=== PATIENT | female | born 1955 | race Caucasian/White ===

== ENCOUNTER 2021-04-02 16:18 | Observation (INO) | payer MEDICARE, SELFPAY ==
[2021-04-02] VITALS (8 sets, daily range): BP systolic 135–196; BP diastolic 50–67; PULSE 63–85; RESP 14–16; TEMP 36.3–36.6; O2SAT 95–100; BMI 40.8; BMI 41.3; BMI 40.1
--- NOTE | 2021-04-02 16:26 | EKG12_ITS ---
Test Reason : NEURO Blood Pressure : / mmHG Vent. Rate : 066 BPM Atrial Rate : 066 BPM P-R Int : 178 ms QRS Dur : 082 ms QT Int : 386 ms P-R-T Axes : 040 046 151 degrees QTc Int : 404 ms Normal sinus rhythm Anteroseptal infarct , age undetermined ST & T wave abnormality, consider inferolateral ischemia Abnormal ECG Confirmed by RCIO BLACKWOOD, JAUN ([id number]), editor map EWA NGUYEN ([id number]) on 04/06/2021 10:26:47 AM Referred By: JENNY Confirmed By:JAUN GÓMEZ MD
--- NOTE | 2021-04-02 16:26 | CT_ITS ---
STUDY: CT BRAIN WITHOUT CONTRAST REASON FOR EXAM: Female, 66 years old. diploplia RADIATION DOSAGE (If Supplied By Facility): CTDIvol = ( 44.99 ) mGy, DLP = ( 829.85 ) mGycm TECHNIQUE: Transaxial CT imaging of the brain was performed without administration of intravenous contrast material. Individualized dose optimization techniques were used for this CT. COMPARISON: No relevant priors. FINDINGS: Normal soft tissue structures. Normal calvarium. Normal size ventricles and extra-axial spaces for the patient''s age. Normal white matter tracts of the cerebral hemispheres. Normal basal ganglia and thalami. Normal brainstem. Normal cerebellum. There is no intracranial hemorrhage. There are no findings of an acute ischemic infarction. Normal visualized paranasal sinuses. CT/Brain/Head without Contrast IMPRESSION: Normal unenhanced CT scan of the brain. Electronically Signed: Igor Figueroa MD at 17:03 EST Tel , Service support ,
--- NOTE | 2021-04-02 16:34 | NURSING ---
NO OLD EKGS
--- NOTE | 2021-04-02 16:49 | RAD_ITS ---
STUDY: X-RAY CHEST REASON FOR EXAM: Female, 66 years old. stroke TECHNIQUE: Single AP portable view of the chest. COMPARISON: None. FINDINGS: The lungs are clear and expanded. There is no demonstrated pleural abnormality. Normal size heart. Normal mediastinum and desire. Normal visualized pulmonary arteries. Normal visualized aortic arch and descending thoracic aorta. Normal visualized thoracic spine. Normal visualized ribs, clavicles, and shoulders. There is no demonstrated abnormality of the visualized soft tissue structures of the upper abdomen. RAD/Chest 1 View (Portable) IMPRESSION: Normal x-ray examination of the chest. Electronically Signed: Igor Figueroa MD at 17:06 EST Tel , Service support ,
[2021-04-02 16:55] LABS: Absolute Lymphocyte Count 2.99 X10^3/uL (0.83-4.51); Absolute Neutrophil Count 10.8 X10^3/uL (2.0-7.7); Basophil# 0.07 X10^3/uL; Basophil% 0.4 % (0-1); Eosinophil# 0.56 X10^3/uL; Eosinophils% 3.6 % (0-5); Hematocrit 41.1 % (37-47); Hemoglobin 13.7 g/dL (12.0-15.0); Lymphocyte # 2.99 X10^3/ul (0.83-4.51); Lymphocyte % 19.1 % (19-41); Mean Corp Hgb Conc 33.3 g/dL (32-36); Mean Corpuscular Hgb 28.8 pg (27.0-32.0); Mean Corpuscular Volume 86.5 fL (81-99); Monocyte# 1.15 X10^3/uL; Monocyte% 7.3 % (0-10); NRBC Flagged by Analyzer 0 % (0-5); Neutrophil # 10.78 X10^3/uL (2.7-7.7); Platelet Count 390 K/mm3 (150-450); RBC Distribution Width CV 13.8 % (11.6-14.6); RBC Distribution Width SD 44.4 fl (35.1-43.9); Red Blood Count 4.75 M/mm3 (4.2-5.4); White Blood Count 15.7 K/mm3 (4.4-11.0)
[2021-04-02 17:10] LABS: International Normalized Ratio 1.1; Prothrombin Time (Protime)PT. 13.6 SECONDS (11.7-14.9)
[2021-04-02 17:41] LABS: ALB/GLOB Ratio 0.7 RATIO (0.9-2.4); AST(SGOT) 14 U/L (15-37); Alanine Aminotransfer ALT/SGPT 26 U/L (13-56); Albumin, Serum 2.9 g/dL (3.2-5.0); Alkaline Phosphatase 93 U/L (45-117); Anion Gap 11 (5-15); BUN 33 mg/dL (7-18); BUN/Creat Ratio 24.1 RATIO (10-20); Calcium,Total 8.4 mg/dL (8.5-10.1); Chloride 98 mmol/L (98-107); Creatinine, Serum 1.37 mg/dL (0.55-1.02); EST Glomerular Filtration Rate 41 mL/min (>60); Est Glom Filt Rate - Afr Amer 49 mL/min (>60); Estimated Creatinine Clearance 31.52 ml/min; Globulin 4.1 g/dL (2.2-4.2); Glucose 272 mg/dL (74-106); Potassium 3.2 mmol/L (3.5-5.1); Sodium Level 137 mmol/L (136-145); Troponin-I HS 45 pg/mL (3.0-54.0)
[2021-04-02 17:45] LABS: Bacteria 0 SEEN /hpf (None Seen); Mucous, Urine 0 SEEN /hpf (<or=2+); Red Blood Cells-Urine 0 SEEN /hpf (0-5)
[2021-04-02 17:59] LABS: Color, Urine Yellow (Yellow); Glucose, Dipstick Normal (Normal); Ketone-Dipstick Negative (Negative); Leukocyte Esterase-Dipstick 25 /ul (Negative); Nitrite-Dipstick Negative (Negative); Occult Blood-Urine Negative /ul (Negative); Protein-Dipstick Negative (Negative); Urine Bilirubin Dipstick Negative (Negative); Urine Clarity Clear (Clear); Urine Urobilinogen Normal (Normal)
[2021-04-02 18:18] LABS: Hyaline Cast 0-5 SEEN /lpf (0-5); Squamous Epithelial Cells - UA 0-5 SEEN /hpf (5-10); White Blood Cells 0-5 SEEN /hpf (0-5)
--- NOTE | 2021-04-02 18:41 | EDS_ITS ---
HPI History of Present Illness Chief Complaint: Neuro S/Sx Narrative Narrative: 66-year-old female with history of diabetes, hypertension, Sjogren's presenting with concern for stroke. She started having symptoms of diplopia on Tuesday. She was seen by her travel freight and passenger agent who did evaluate her and had concern for stroke given her acute horizontal diplopia and her partial medial rectus palsy. She states she has no history of stroke. She does not have any paresthesias. She is able to move all 4 extremities. She states that when she does ambulate she has to cover 1 eye otherwise she has difficulty due to the diplopia. Patient denies any head injury. [facility] Medical History Depression Diabetes HTN (hypertension) Hypercholesteremia Leukocytosis PTSD (post-traumatic stress disorder) Rheumatoid arthritis Sleep apnea with use of nocturnal bilevel positive airway pressure (BPAP) Home Medications aspirin [Baby Aspirin] 81 mg PO DAILY 04/02/21 [History Last Taken Unknown] atorvastatin 40 mg PO DAILY 04/02/21 [History Last Taken Unknown] clonidine HCl 0.2 mg PO BID 04/02/21 [History Last Taken Unknown] diltiazem HCl 180 mg PO BID 04/02/21 [History Last Taken Unknown] escitalopram oxalate 20 mg PO DAILY 04/02/21 [History Last Taken Unknown] glipizide 5 mg PO DAILY 04/02/21 [History Last Taken Unknown] hydralazine 50 mg PO BID 04/02/21 [History Last Taken Unknown] hydroxychloroquine 200 mg PO BID 04/02/21 [History Last Taken Unknown] lisinopril 40 mg PO DAILY 04/02/21 [History Last Taken Unknown] topiramate 300 mg PO DAILY 04/02/21 [History Last Taken Unknown] Allergy/AdvReac Type Severity Reaction Status Date / Time No Known Allergies Allergy Verified 04/02/21 16:20 Social History Smoking Status: Never smoker ROS ROS ED Constitutional Constitutional ED: Denies chills, fever(s) or sweats Eyes Eyes: Reports diplopia ENT ENT ED: Denies rhinorrhea or sore throat Cardiovascular Cardiovascular: Denies chest pain or palpitations Respiratory/Chest Respiratory/Chest: Denies cough or dyspnea Gastrointestinal Gastrointestinal: Denies abdominal pain, diarrhea, nausea or vomiting Genitourinary Genitourinary ED: Denies dysuria or hematuria Musculoskeletal Musculoskeletal: Denies arthralgias or myalgias Integumentary Denies abscess or rash Neurologic Neurologic: Denies headache(s), paresthesias or weakness EXAM Physical Exam Const Vital Signs: 04/02/21 16:20 04/02/21 17:39 04/02/21 18:33 Temperature 97.4 F L Temperature Source Temporal Pulse Rate 80 69 84 Respiratory Rate 14 15 14 Blood Pressure 196/67 H 143/50 H 135/51 H Blood Pressure Mean 110 81 79 Pulse Ox 98 100 95 Oxygen Delivery Method Room Air Room Air Room Air Positive well nourished General Appearance ED: NAD ROLAND Reports moist mucous membranes atraumatic Eyes PERRL Eyes Narrative: Patient does have a slight right medial rectus palsy when she is relaxed. She does appear to be able to overcome this at times. She has double vision when using both eyes and can cover up each eye individually and the other I will not have double vision in it. Neck no lymphadenopathy and supple Cardio Rate: regular rate Rhythm: regular rhythm GI normal to inspection, nondistended, normoactive bowel sounds Extremity normal to inspection General Extremety ED: Yes tenderness Neuro oriented x3 and no sensory deficits noted Neuro Narrative: NIH stroke scale score 1 for gaze palsy Sensorium / Orientation: alert Motor Exam: strength abnormal Psych mental status grossly normal Skin Lesions: no lesions Rashes: no rashes STROKE Vital Signs/Narrative: Vital Signs Temp Pulse Resp BP Pulse Ox 04/02/21 18:33 84 14 135/51 H 95 04/02/21 17:39 69 15 143/50 H 100 04/02/21 16:20 97.4 F L 80 14 196/67 H 98 MDM MDM MDM Narrative Medical decision making narrative: Patient is outside the window for tPA. She has a partial right medial rectus palsy which she can overcome at times. She also has double vision in each eye which appears to be horizontal. When she covers 1 eye the other eye sees normally and this occurs on both sides. She has no other neurologic findings. CT brain is negative for acute process. CBC shows a leukocytosis of 15.7 and the patient states he is always had a leukocytosis. Chest x-ray on my interpretation shows no acute cardiopulmonary process and the radiologist was reviewed. Creatinine is elevated 1.37 however have no comparison. Potassium is slightly low at 3.2. Urinalysis is negative for infection. Patient is new to the area and does not have primary care follow-up. Given the possibility of stroke I think she needs to be admitted for an MRI. She was given aspirin 324 mg to chew. She was discussed with the hospitalist for admission. Impression: 1. Horizontal diplopia 2. Right medial rectus palsy Lab Data Attestation: I reviewed the patient's lab results. Labs: Laboratory Results - last 24 hr 04/02/21 04/02/21 04/02/21 16:40 16:40 16:40 WBC 15.7 H RBC 4.75 Hgb 13.7 Hct 41.1 MCV 86.5 MCH 28.8 MCHC 33.3 RDW Std Deviation 44.4 H RDW Coeff of Comfort 13.8 Plt Count 390 MPV 11.0 Immature Gran % (Auto) 0.600 Neut % (Auto) 69.0 Lymph % (Auto) 19.1 [place] % (Auto) 7.3 Eos % (Auto) 3.6 Baso % (Auto) 0.4 Absolute Neuts (auto) 10.8 H Absolute Lymphs (auto) 2.99 Nucleated RBC % 0 PT 13.6 INR 1.1 Sodium 137 Potassium 3.2 L Chloride 98 Carbon Dioxide 28.0 Anion Gap 11 BUN 33 H Creatinine 1.37 H Estim Creat Clear Calc 31.52 Est GFR (MDRD) Af Amer 49 L Est GFR (MDRD) Non-Af 41 L BUN/Creatinine Ratio 24.1 H Glucose 272 H Calcium 8.4 L Total Bilirubin 0.30 AST 14 L ALT 26 Alkaline Phosphatase 93 Troponin I High Sens 45 Total Protein 7.0 Albumin 2.9 L Globulin 4.1 Albumin/Globulin Ratio 0.7 L Urine Color Urine Clarity Urine pH Ur Specific [place] Urine Protein Urine Glucose (UA) Urine Ketones Urine Occult Blood Urine Nitrite Urine Bilirubin Urine Urobilinogen Ur Leukocyte Esterase Urine RBC Urine WBC Ur Squamous Epith Cells Urine Bacteria Hyaline Casts Urine Mucus 04/02/21 17:35 WBC RBC Hgb Hct MCV MCH MCHC RDW Std Deviation RDW Coeff of Comfort Plt Count MPV Immature Gran % (Auto) Neut % (Auto) Lymph % (Auto) [place] % (Auto) Eos % (Auto) Baso % (Auto) Absolute Neuts (auto) Absolute Lymphs (auto) Nucleated RBC % PT INR Sodium Potassium Chloride Carbon Dioxide Anion Gap BUN Creatinine Estim Creat Clear Calc Est GFR (MDRD) Af Amer Est GFR (MDRD) Non-Af BUN/Creatinine Ratio Glucose Calcium Total Bilirubin AST ALT Alkaline Phosphatase Troponin I High Sens Total Protein Albumin Globulin Albumin/Globulin Ratio Urine Color Yellow Urine Clarity Clear Urine pH 5.0 Ur Specific [place] 1.020 Urine Protein Negative Urine Glucose (UA) Normal Urine Ketones Negative Urine Occult Blood Negative Urine Nitrite Negative Urine Bilirubin Negative Urine Urobilinogen Normal Ur Leukocyte Esterase 25 H Urine RBC 0 SEEN Urine WBC 0-5 SEEN Ur Squamous Epith Cells 0-5 SEEN Urine Bacteria 0 SEEN Hyaline Casts 0-5 SEEN Urine Mucus 0 SEEN Radiography Diagnostic Testing: Clinical Impression(s) from Imaging Studies Brain CT 04/02/21 16:26 IMPRESSION: Normal unenhanced CT scan of the brain. Electronically Signed: Igor Figueroa MD at 17:03 EST Tel , Service support , Chest X-Ray 04/02/21 16:49 IMPRESSION: Normal x-ray examination of the chest. Electronically Signed: Igor Figueroa MD at 17:06 EST Tel , Service support , Discharge Plan Triage Chief Complaint: Neuro S/Sx ED Provider: Dakota Parks Dx/Rx/DC Orders Prescriptions: No Action atorvastatin 40 mg tablet 40 mg PO DAILY RF: 0 diltiazem HCl 180 mg capsule,extended release 24hr 180 mg PO BID RF: 0 clonidine HCl 0.2 mg tablet 0.2 mg PO BID RF: 0 aspirin [Baby Aspirin] 81 mg Tablet,Chewable 81 mg PO DAILY RF: 0 hydralazine 50 mg tablet 50 mg PO BID RF: 0 hydroxychloroquine 200 mg tablet 200 mg PO BID RF: 0 lisinopril 40 mg tablet 40 mg PO DAILY RF: 0 topiramate 100 mg tablet 300 mg PO DAILY RF: 0 glipizide 5 mg tablet 5 mg PO DAILY RF: 0 escitalopram oxalate 20 mg tablet 20 mg PO DAILY RF: 0 Primary Care Provider: Care Physician,No Primary
--- NOTE | 2021-04-02 18:58 | PCM.HP.STD ---
HPI - General HPI Narrative TIMOTHY RODRIGUEZ, is a 66 F who presents with a 2-day history of diplopia. Began suddenly. Has not gotten any better. Saw her media center specialist to with patient had a nerve palsy and sent her to the emergency room. Patient underwent a work-up that was unremarkable. Stroke team was not called as the onset was 2 days ago. Patient is never had this issue before. Patient's also notes that patient has drooping of her right eyelid. Patient has never had a stroke before. [facility] Medical History (Updated 04/02/21 @ 19:[address] Khang Garces DO) Depression Diabetes HTN (hypertension) Hypercholesteremia Leukocytosis PTSD (post-traumatic stress disorder) Rheumatoid arthritis Sleep apnea with use of nocturnal bilevel positive airway pressure (BPAP) Home Medications aspirin [Baby Aspirin] 81 mg PO DAILY 04/02/21 [History Last Taken Unknown] atorvastatin 40 mg PO DAILY 04/02/21 [History Last Taken Unknown] clonidine HCl 0.2 mg PO BID 04/02/21 [History Last Taken Unknown] diltiazem HCl 180 mg PO BID 04/02/21 [History Last Taken Unknown] escitalopram oxalate 20 mg PO DAILY 04/02/21 [History Last Taken Unknown] glipizide 5 mg PO DAILY 04/02/21 [History Last Taken Unknown] hydralazine 50 mg PO BID 04/02/21 [History Last Taken Unknown] hydroxychloroquine 200 mg PO BID 04/02/21 [History Last Taken Unknown] lisinopril 40 mg PO DAILY 04/02/21 [History Last Taken Unknown] topiramate 300 mg PO DAILY 04/02/21 [History Last Taken Unknown] Allergy/AdvReac Type Severity Reaction Status Date / Time No Known Allergies Allergy Verified 04/02/21 16:20 Social History (Updated 04/02/21 @ 19:[address] Khang Garces DO) Smoking Status: Never smoker alcohol intake: never substance use type: does not use ROS ROS Narrative Denies any paresthesias nor any unilateral weakness. All review of systems were negative except as mentioned above in the history of present illness and the other review of systems. Vital Signs Vital Signs Vital Signs: 04/02/21 16:20 04/02/21 17:39 04/02/21 18:33 Temperature 36.3 C L Temperature Source Temporal Pulse Rate 80 69 84 Respiratory Rate 14 15 14 Blood Pressure 196/67 H 143/50 H 135/51 H Blood Pressure Mean 110 81 79 Pulse Ox 98 100 95 Oxygen Delivery Method Room Air Room Air Room Air Weight Weight: 102.6 kg Body Mass Index (BMI) 41.3 Physical Exam Const alert General Appearance: cooperative HEENT normocephalic and head/scalp atraumatic HEENT Narrative: Patient unable to adduct her right eye. Patient experiencing diplopia on visual gaze in all grimm. right ptosis Neck no lymphadenopathy Neck Narrative: No thyromegaly Resp normal respiratory effort, no retractions, no use of accessory muscles and clear to auscultation bilaterally Cardio regular rate and regular rhythm Cardio Narrative: 2 out of 6 systolic ejection murmur GI normal to inspection, nondistended, normoactive bowel sounds, soft to palpation, non-tender and non-distended Extremity normal to inspection and full ROM Skin Skin Narrative: Chronic skin changes to lower extremities are without any erythema. Neuro moves all extremities and no focal motor deficits Sensorium / Orientation: awake and alert Speech: speech normal Psych affect normal Results Lab / Micro Data Attestation: I reviewed the patient's lab results. Result Diagrams: 04/02/21 16:40 04/02/21 16:40 Labs: Laboratory Results - last 24 hr 04/02/21 16:40: WBC 15.7 H, RBC 4.75, Hgb 13.7, Hct 41.1, MCV 86.5, MCH 28.8, MCHC 33.3, RDW Std Deviation 44.4 H, RDW Coeff of Comfort 13.8, Plt Count 390, MPV 11.0, Immature Gran % (Auto) 0.600, Neut % (Auto) 69.0, Lymph % (Auto) 19.1, [place] % (Auto) 7.3, Eos % (Auto) 3.6, Baso % (Auto) 0.4, Absolute Neuts (auto) 10.8 H, Absolute Lymphs (auto) 2.99, Nucleated RBC % 0 04/02/21 16:40: PT 13.6, INR 1.1 04/02/21 16:40: Sodium 137, Potassium 3.2 L, Chloride 98, Carbon Dioxide 28.0, Anion Gap 11, BUN 33 H, Creatinine 1.37 H, Estim Creat Clear Calc 31.52, Est GFR (MDRD) Af Amer 49 L, Est GFR (MDRD) Non-Af 41 L, BUN/Creatinine Ratio 24.1 H, Glucose 272 H, Calcium 8.4 L, Total Bilirubin 0.30, AST 14 L, ALT 26, Alkaline Phosphatase 93, Troponin I High Sens 45, Total Protein 7.0, Albumin 2.9 L, Globulin 4.1, Albumin/Globulin Ratio 0.7 L 04/02/21 17:35: Urine Color Yellow, Urine Clarity Clear, Urine pH 5.0, Ur Specific [place] 1.020, Urine Protein Negative, Urine Glucose (UA) Normal, Urine Ketones Negative, Urine Occult Blood Negative, Urine Nitrite Negative, Urine Bilirubin Negative, Urine Urobilinogen Normal, Ur Leukocyte Esterase 25 H, Urine RBC 0 SEEN, Urine WBC 0-5 SEEN, Ur Squamous Epith Cells 0-5 SEEN, Urine Bacteria 0 SEEN, Hyaline Casts 0-5 SEEN, Urine Mucus 0 SEEN Radiology Impression Brain CT 04/02/21 16:26 IMPRESSION: Normal unenhanced CT scan of the brain. Electronically Signed: Igor Figueroa MD at 17:03 EST Tel , Service support , Chest X-Ray 04/02/21 16:49 IMPRESSION: Normal x-ray examination of the chest. Electronically Signed: Igor Figueroa MD at 17:06 EST Tel , Service support , Assessment & Plan Assessment/Plan (1) 3rd cranial nerve palsy: QUALIFIERS: Laterality: right Qualified Code(s): H49.01 - Third [oculomotor] nerve palsy, right eye PLAN: 1. Right 3rd cranial nerve palsy Onset was the fourth Concern is for stroke where the possibilities could be vasculitis or from diabetes. Plan is to continue with the stroke work-up including MRI of the brain, MRA of the head and neck, 2D echocardiogram and therapy evaluations Continue with aspirin and atorvastatin Patch her left eye during the day 2. Diabetes mellitus type 2 Continue with their glyburide Sliding-scale insulin Check an A1c 3. Sjogren's Stable Continue hydroxy chloroquine 4. VTE prophylaxis: Not indicated given her current observation status 5. Code vaccination status: Patient has been vaccinated but also contracted Covid in January. Charges/Coding Visit Charges OBSV E&M: [id number] Initial observation care L3
[2021-04-02] MEDS: Aspirin 81 MG TAB.CHEW 324 MG PO (19:08)
[2021-04-02 19:35] LABS: Troponin-I HS 43 pg/mL (3.0-54.0)
--- NOTE | 2021-04-02 20:00 | ECHOCS_ITS ---
Reason For Study: TIA/CVA Procedure This was a 2D Doppler, Color Flow transthoracic echocardiogram. Contrast injection was performed. Exam performed portable in patient room. Left Ventricle Severe concentric left ventricular hypertrophy. The estimated ejection fraction is 55-60 %. Right Ventricle Normal right ventricle. Normal systolic function. Atria The left atrium is mildly enlarged. The right atrium is mildly enlarged. Mitral Valve There is moderate mitral annular calcification. Tricuspid Valve Normal tricuspid valve. Aortic Valve Mild aortic stenosis. Pulmonic Valve The pulmonic valve is not well visualized. Great Vessels Normal aortic root. Pericardium/Pleural Small pericardial effusion. Medication Performed a rapid injection of agitated mix of 9 cc saline and 1cc air to assess for atrial septal defect. Diluted definity 2.5ml given slow IV push to enhance endocardial definition. MMode/2D Measurements & Calculations LVIDd: 4.8 cm IVSd: 1.9 cm LVOT diam: 1.9 cm LVIDs: 3.1 cm LVPWd: 1.3 cm RVDd: 4.0 cm FS: 34.4 % LVOT area: 2.7 cm2 Ao root diam: 3.2 cm LAV(MOD-bp): 54.2 ml LVAd ap4: 27.0 cm2 LAV(MOD-bp) Indexed: 27.3 ml/m2 LVLd ap4: 6.8 cm LAV(MOD-sp2): 52.6 ml EDV(MOD-sp4): 88.6 ml LAV(MOD-sp4): 54.3 ml EDV(sp4-el): 90.4 ml LVAs ap4: 13.1 cm2 LVLs ap4: 5.9 cm ESV(MOD-sp4): 26.9 ml ESV(sp4-el): 24.5 ml EF(MOD-sp4): 69.7 % EF(sp4-el): 72.9 % SV(MOD-sp4): 61.8 ml SV(sp4-el): 65.9 ml LA A4 area: 19.4 cm2 LA dimension(2D): 4.2 cm RA A4 area: 12.0 cm2 Doppler Measurements & Calculations MV E max gurpreet: 106.3 cm/sec Lat Peak E' Gurpreet: 4.5 cm/sec Med Peak E' Gurpreet: 3.9 cm/sec MV A max gurpreet: 127.8 cm/sec E/E' lat: 23.9 E/E' med: 27.0 MV E/A: 0.83 Ao V2 max: 217.2 cm/sec LV V1 max: 135.9 cm/sec SV(LVOT): 81.3 ml Ao max P.9 mmHg LV V1 max P.4 mmHg Ao V2 mean: 144.8 cm/sec LV V1 mean P.2 mmHg Ao mean P.6 mmHg LV V1 mean: 98.8 cm/sec Ao V2 VTI: 43.3 cm LV V1 VTI: 30.0 cm GERMAN(I,D): 1.9 cm2 GERMAN(V,D): 1.7 cm2 PA V2 max: 108.8 cm/sec ECHO/Echo Complete W/ Contrast Interpretation Summary The estimated ejection fraction is 55-60 %. Moderate -Severe LVH Definity IV used Ordering Physician: Khang Garces Performed By: Kristyn Tesfaye, CHOLO, RVT
--- NOTE | 2021-04-02 20:11 | PCS.PANDOC ---
PANDEMIC DOCUMENTATION INITIATED: Date: 11/10/2020 Time: 190
[2021-04-02] MEDS: hydrALAZINE 50 MG Tablet PO (20:27)
[2021-04-02] MEDS: Hydroxychloroquine 200 MG Tablet PO (20:33)
[2021-04-02] MEDS: dilTIAZem CD 180 MG Capsule PO (20:33)
[2021-04-02] MEDS: cloNIDine HCl 0.2 MG Tablet PO (20:33)
[2021-04-02 21:45] LABS: Bedside Glucose 217 mg/dL (70-110)
[2021-04-03] VITALS (8 sets, daily range): BP systolic 104–139; BP diastolic 47–56; PULSE 51–62; RESP 12–16; TEMP 36.4–36.7; O2SAT 96–100
[2021-04-03] MEDS: Insulin Lispro 100 UNIT/ML INSULN.PEN SC ×2 (06:27→11:33)
[2021-04-03 06:30] LABS: Bedside Glucose 238 mg/dL (70-110)
--- NOTE | 2021-04-03 07:00 | MRI_ITS ---
STUDY: MRI BRAIN WITHOUT CONTRAST REASON FOR EXAM: Female, 66 years old. right eye palsy, double vision TECHNIQUE: Standardized multiplanar fat and water weighted pulse sequences were obtained. COMPARISON: CT Brain Apr 02 2021 FINDINGS: Normal size of the ventricles and extra-axial spaces for the patient''s age. There are multiple white matter hyperintensities, distributed throughout the deep white matter tracts of the cerebral hemispheres, consistent with mild chronic white matter ischemic changes. Normal bilateral basal ganglia. Normal thalami. There is no extra-axial fluid accumulation. Normal sella turcica, pituitary gland, infundibular stalk, optic chiasm and hypothalamus. Normal tectal plate and pineal gland. Normal midbrain, eun and medulla. Normal cerebellum. Normal basal cisterns. MRI/Brain without Contrast IMPRESSION: No acute intracranial abnormality. Mild chronic microvascular ischemic changes. Electronically Signed: Rolando La MD at 11:44 EST Tel , Service support ,
--- NOTE | 2021-04-03 07:00 | MRI_ITS ---
STUDY: MRA OF THE HEAD WITHOUT CONTRAST REASON FOR EXAM: Female, 66 years old. right eye palsy, double vision. right eye palsy, double vision TECHNIQUE: 3-D [id number] (TOF) imaging was performed with MIPs. The study was performed unenhanced. COMPARISON: None. FINDINGS: Patent right cavernous carotid artery. Patent left cavernous carotid artery. Patent right A1 segments of the anterior cerebral artery. Patent left A1 segments of the anterior cerebral artery. Unremarkable anterior communicating artery (ACOM) region. Normal bilateral A2 segments of the anterior cerebral arteries. Patent right M1 and M2 segments of the middle cerebral arteries, with a unremarkable M1 bifurcation. Patent left M1 and M2 segments of the middle cerebral arteries, with a unremarkable M1 bifurcation. There is a persistent origin of the right posterior cerebral artery with absence of the P1 segment of the right posterior cerebral artery. There is non-visualization of the left posterior communicating artery (PCOM). Patent basilar artery with a normal basilar bifurcation. Patent bilateral posterior cerebral arteries. MRI/MRA Head ONLY without Contrast IMPRESSION: No large vessel occlusion. Electronically Signed: Rolando La MD at 11:54 EST Tel , Service support ,
--- NOTE | 2021-04-03 07:00 | MRI_ITS ---
STUDY: MRA NECK WITHOUT CONTRAST REASON FOR EXAM: Female, 66 years old. right eye palsy, double vision. TECHNIQUE: Source images were obtained, MIPs were performed. The study was performed unenhanced. COMPARISON: None. FINDINGS: RIGHT CAROTID ARTERIES: Antegrade flow within the right common carotid artery (CCA). Antegrade flow within the right carotid bulb. Antegrade flow within the right internal carotid (ICA) artery. Antegrade flow within the visualized cervical portion of the right internal carotid artery. LEFT CAROTID ARTERIES: Antegrade flow within the left common carotid artery (CCA). Antegrade flow within the left common carotid bulb. There appears to be moderate atherosclerotic plaque formation of the origin of the left internal carotid artery with an estimated stenosis of 50-69% stenosis. Antegrade flow within the visualized cervical portion of the left internal carotid artery. VERTEBRAL ARTERIES: Antegrade flow within the bilateral vertebral artery. MRI/MRA Neck without Contrast IMPRESSION: No demonstrated occlusion. Suspected moderate stenosis of the left ICA. Further evaluation with carotid sonography or CTA is recommended. Electronically Signed: Rolando La MD at 11:58 EST Tel , Service support ,
[2021-04-03 07:20] LABS: Cholesterol 217 mg/dL (200); High Density Lipoprotein 28 mg/dL; Magnesium 2.6 mg/dL (1.6-2.6); Triglycerides 381 mg/dL; Very Low Density Lipoprotein 76 mg/dL (5-40)
[2021-04-03 07:24] LABS: Hemoglobin A1c 7.6 % (3.8-5.6)
[2021-04-03] MEDS: Lisinopril 40 MG Tablet PO (10:01)
[2021-04-03] MEDS: Escitalopram Oxalate 20 MG Tablet PO (10:01)
[2021-04-03] MEDS: Hydroxychloroquine 200 MG Tablet PO (10:01)
[2021-04-03] MEDS: glipiZIDE 5 MG Tablet PO (10:02)
[2021-04-03] MEDS: Aspirin 81 MG TAB.CHEW PO (10:02)
[2021-04-03] MEDS: hydrALAZINE 50 MG Tablet PO (10:02)
[2021-04-03] MEDS: cloNIDine HCl 0.2 MG Tablet PO (10:02)
[2021-04-03] MEDS: dilTIAZem CD 180 MG Capsule PO (10:02)
[2021-04-03] MEDS: Potassium Chloride Oral Tablet 20 MEQ 40 MEQ PO (10:05)
--- NOTE | 2021-04-03 11:22 | TELEMED_ITS ---
[facility] has confirmed receipt of a request for visit. This document confirms receipt of the order initiating the consult. To find the results of the consultation, please view the patient's reports for the scanned Telemed Consult.
--- NOTE | 2021-04-03 11:34 | PCM.DC ---
Discharge Instructions Diet Discharge Diet: No restrictions Activity Discharge Activity: Return to Normal Activity Weight Bearing Status: Weight bearing as tolerated Dressing / Incision Call your doctor if you observe: Fever of 101 or Higher, Numbness or Tingling, Shortness of breath, Dizziness, Chest pain, Increased palpitations (irregular heartbeat) and Calf discomfort Follow Up Care Please Follow Up With: Primary care provider When: Within the next two weeks. Test Results: Test results from this visit will be discussed in further detail at your follow-up appointment, if applicable. Discharge Plan Admission Admit Date/Time: 04/02/21 18:51 Primary Reason for Your Visit: Right eye double vision Attending Provider: Cynthia Acosta Primary Care Provider: Care Physician,No Primary Instructions Additional Instructions / Restrictions: * follow up with your appointment with Dr. Fernandez on 04/07/2021 at [facility] in [place], [place]. * Check Blood sugars daily and keep log to present to primary care provider. Discharge Orders/Prescriptions Prescriptions: New glipizide 5 mg Tablet 5 mg PO BID Qty: 60 RF: 0 metformin 500 mg tablet 500 mg PO BID Qty: 60 RF: 0 Continued atorvastatin 40 mg tablet 40 mg PO DAILY RF: 0 diltiazem HCl 180 mg capsule,extended release 24hr 180 mg PO BID RF: 0 clonidine HCl 0.2 mg tablet 0.2 mg PO BID RF: 0 aspirin 81 mg Tablet,Chewable 81 mg PO DAILY RF: 0 hydralazine 50 mg tablet 50 mg PO BID RF: 0 hydroxychloroquine 200 mg tablet 200 mg PO BID RF: 0 lisinopril 40 mg tablet 40 mg PO DAILY RF: 0 topiramate 100 mg tablet 300 mg PO DAILY RF: 0 escitalopram oxalate 20 mg tablet 20 mg PO DAILY RF: 0 Discontinued glipizide 5 mg tablet 5 mg PO DAILY RF: 0 Referrals / Follow Up: Modesto Araiza NP, FRONT END DEVELOPER DESIGNER-C [Nurse Practitioner] - See Referral Note (Make appointment to establish primary care. ) Disposition Disposition (needs filled in before D/C Order can be placed): Home, Self Care
[2021-04-03 11:35] LABS: Bedside Glucose 299 mg/dL (70-110)
--- NOTE | 2021-04-03 12:49 | CASEMGMT ---
Per therapy, No therapy recommended at d/c. SStaten RN CM
--- NOTE | 2021-04-03 14:54 | DS.PCM_ITS ---
Documented by User: Diego WHITE 04/03/21 15:03 Providers Date of Admission: 04/02/21 Primary Care Physician: No Primary Care Phys Reason For Visit: RIGHT EYE PALSY Diagnosis Discharge Diagnosis (1) 3rd cranial nerve palsy: Status: Acute Code(s): H49.00 - Third [oculomotor] nerve palsy, unspecified eye Qualifiers: Laterality: right Qualified Code(s): H49.01 - Third [oculomotor] nerve palsy, right eye Medications at Discharge Home Medications aspirin 81 mg PO DAILY 04/02/21 atorvastatin 40 mg PO DAILY 04/02/21 clonidine HCl 0.2 mg PO BID 04/02/21 diltiazem HCl 180 mg PO BID 04/02/21 escitalopram oxalate 20 mg PO DAILY 04/02/21 hydralazine 50 mg PO BID 04/02/21 hydroxychloroquine 200 mg PO BID 04/02/21 lisinopril 40 mg PO DAILY 04/02/21 topiramate 300 mg PO DAILY 04/02/21 glipizide 5 mg PO BID #60 tab 04/03/21 metformin 500 mg PO BID #60 tab 04/03/21 Hospital Course Summary of Care Provided Minutes Spent on Discharge: 25 Hospital Course: Patient is a 66-year-old female who was admitted to the hospital on 04/02/2021 for evaluation and management of right-sided diplopia. On admission patient reported a 2-day history of right-sided diplopia as well as right eye weakness and was evaluated for stroke. Brain MRI/MRA did not reveal an y evidence of acute ischemia, infarction or significant stenosis. Neck MRA did not reveal any significant occlusion, however did reveal moderate stenosis of the left ICA between 50 to 69%. SOC consult was obtained and recommendations are as follows: Believe that right-sided diplopia is due to poor diabetic management, recommend tighter control of patient blood sugars and to continue eye patching as needed. Hemoglobin A1c was obtained and was 7.6. Patient's home glipizide increased to twice daily and Metformin was added twice daily to patient home diabetic regimen. Patient does not have a primary care provider, referral was made to nurse practitioner Modesto Araiza to establish primary care. Patient is to follow-up with her ophthalmology appointment on 04/07/2021. Patient seen by Diego London PA-C, under the supervision of Dr. Acosta. Time spent on patient care: 25 minutes. Physical Exam Narrative Patient is a 66-year-old female comfortably resting in bed, alert and orient x3. Patient reports that right-sided diplopia has gotten mildly better since admission. Denies development of any new symptoms overnight. Does not appear in acute distress. Const alert, oriented x3 and no apparent distress HEENT normocephalic, head/scalp atraumatic and hearing grossly normal bilaterally Eyes PERRL, EOMs intact bilaterally and conjunctivae normal Neck no lymphadenopathy, supple and no JVD Resp normal respiratory effort, no retractions, no use of accessory muscles and clear to auscultation bilaterally Cardio regular rate, regular rhythm, no murmurs and no JVD GI normal to inspection, nondistended, normoactive bowel sounds, soft to palpation and non-tender Extremity normal to inspection, full ROM and no clubbing, cyanosis or edema Skin no rashes or lesions noted, no wounds and skin turgor normal Neuro Neuro Narrative: Patient still reports ongoing right-sided diplopia, although accommodation and pupil dilation/contraction is appropriate. No other focal neurological deficits reported or evident. Psych affect normal Weight / BMI Weight Weight: 219 lb 12.814 oz Body Mass Index (BMI) 40.1 ABG / Lab / Microbiology Data Result Diagrams: 04/02/21 16:40 04/02/21 16:40 Laboratory: Laboratory Results - last 24 hr 04/02/21 16:40: WBC 15.7 H, RBC 4.75, Hgb 13.7, Hct 41.1, MCV 86.5, MCH 28.8, MCHC 33.3, RDW Std Deviation 44.4 H, RDW Coeff of Comfort 13.8, Plt Count 390, MPV 11.0, Immature Gran % (Auto) 0.600, Neut % (Auto) 69.0, Lymph % (Auto) 19.1, Donley % (Auto) 7.3, Eos % (Auto) 3.6, Baso % (Auto) 0.4, Absolute Neuts (auto) 10.8 H, Absolute Lymphs (auto) 2.99, Nucleated RBC % 0 04/02/21 16:40: PT 13.6, INR 1.1 04/02/21 16:40: Sodium 137, Potassium 3.2 L, Chloride 98, Carbon Dioxide 28.0, Anion Gap 11, BUN 33 H, Creatinine 1.37 H, Estim Creat Clear Calc 31.52, Est GFR (MDRD) Af Amer 49 L, Est GFR (MDRD) Non-Af 41 L, BUN/Creatinine Ratio 24.1 H, Glucose 272 H, Calcium 8.4 L, Total Bilirubin 0.30, AST 14 L, ALT 26, Alkaline Phosphatase 93, Troponin I High Sens 45, Total Protein 7.0, Albumin 2.9 L, Globulin 4.1, Albumin/Globulin Ratio 0.7 L 04/02/21 17:35: Urine Color Yellow, Urine Clarity Clear, Urine pH 5.0, Ur Specific [place] 1.020, Urine Protein Negative, Urine Glucose (UA) Normal, Urine Ketones Negative, Urine Occult Blood Negative, Urine Nitrite Negative, Urine Bilirubin Negative, Urine Urobilinogen Normal, Ur Leukocyte Esterase 25 H, Urine RBC 0 SEEN, Urine WBC 0-5 SEEN, Ur Squamous Epith Cells 0-5 SEEN, Urine Bacteria 0 SEEN, Hyaline Casts 0-5 SEEN, Urine Mucus 0 SEEN 04/02/21 19:08: Troponin I High Sens 43 04/02/21 20:21: POC Glucose 217 H 04/03/21 05:33: Magnesium 2.6, Triglycerides 381 H, Cholesterol 217 H, LDL Cholesterol 113, VLDL Cholesterol 76 H, HDL Cholesterol 28 L 04/03/21 05:33: Hemoglobin A1c 7.6 H 04/03/21 06:25: POC Glucose 238 H 04/03/21 11:27: POC Glucose 299 H Radiography Diagnostic Testing: Radiology Impression Brain CT 04/02/21 16:26 IMPRESSION: Normal unenhanced CT scan of the brain. Electronically Signed: Igor Figueroa MD at 17:03 EST Tel , Service support , Chest X-Ray 04/02/21 16:49 IMPRESSION: Normal x-ray examination of the chest. Electronically Signed: Igor Figueroa MD at 17:06 EST Tel , Service support , Brain MRI 04/03/21 07:00 IMPRESSION: No acute intracranial abnormality. Mild chronic microvascular ischemic changes. Electronically Signed: Rolando La MD at 11:44 EST Tel , Service support , Head MRA 04/03/21 07:00 IMPRESSION: No large vessel occlusion. Electronically Signed: Rolando La MD at 11:54 EST Tel , Service support , Neck MRA 04/03/21 07:00 IMPRESSION: No demonstrated occlusion. Suspected moderate stenosis of the left ICA. Further evaluation with carotid sonography or CTA is recommended. Electronically Signed: Rolando La MD at 11:58 EST Tel , Service support , D/C Instructions Discharge Diet: No restrictions Weight Bearing Status: Weight bearing as tolerated Call your doctor if you observe: Fever of 101 or Higher, Numbness or Tingling, Shortness of breath, Dizziness, Chest pain, Increased palpitations (irregular heartbeat) and Calf discomfort Please Follow Up With: Primary care provider When: Within the next two weeks. Meaningful Use Info Meaningful Use Diagnoses (Choose all that apply): None applicable Discharge Plan Admission Admit Date/Time: 04/02/21 18:51 Primary Reason for Your Visit: Right eye double vision Attending Provider: Cynthia Acosta Primary Care Provider: Care Physician,No Primary Instructions Additional Instructions / Restrictions: * follow up with your appointment with Dr. Fernandez on 04/07/2021 at [facility] in [place], [place]. * Check Blood sugars daily and keep log to present to primary care provider. * Continue eye patching as needed. * Switch eye patch as needed. Patient Problems: Altered Health Status related to Hospitalization Patient Goals: *Optimal Level of Health *Keep Appointments *Medication Compliance *Remain Safe Discharge Orders/Prescriptions Prescriptions: New glipizide 5 mg Tablet 5 mg PO BID Qty: 60 RF: 0 metformin 500 mg tablet 500 mg PO BID Qty: 60 RF: 0 Continued atorvastatin 40 mg tablet 40 mg PO DAILY RF: 0 diltiazem HCl 180 mg capsule,extended release 24hr 180 mg PO BID RF: 0 clonidine HCl 0.2 mg tablet 0.2 mg PO BID RF: 0 aspirin 81 mg Tablet,Chewable 81 mg PO DAILY RF: 0 hydralazine 50 mg tablet 50 mg PO BID RF: 0 hydroxychloroquine 200 mg tablet 200 mg PO BID RF: 0 lisinopril 40 mg tablet 40 mg PO DAILY RF: 0 topiramate 100 mg tablet 300 mg PO DAILY RF: 0 escitalopram oxalate 20 mg tablet 20 mg PO DAILY RF: 0 Discontinued glipizide 5 mg tablet 5 mg PO DAILY RF: 0 Referrals / Follow Up: Modesto Araiza NP, CONCRETE FINISHER APPRENTICE-C [Nurse Practitioner] - See Referral Note (Make appointment to establish primary care. ) Disposition Disposition (needs filled in before D/C Order can be placed): Home, Self Care Documented by User: Dr. Cynthia Acosta MD 04/05/21 14:15 Providers Date of Admission: 04/02/21 Reason For Visit: RIGHT EYE PALSY Medications at Discharge Home Medications aspirin 81 mg PO DAILY 04/02/21 atorvastatin 40 mg PO DAILY 04/02/21 clonidine HCl 0.2 mg PO BID 04/02/21 diltiazem HCl 180 mg PO BID 04/02/21 escitalopram oxalate 20 mg PO DAILY 04/02/21 hydralazine 50 mg PO BID 04/02/21 hydroxychloroquine 200 mg PO BID 04/02/21 lisinopril 40 mg PO DAILY 04/02/21 topiramate 300 mg PO DAILY 04/02/21 glipizide 5 mg PO BID #60 tab 04/03/21 metformin 500 mg PO BID #60 tab 04/03/21 ABG / Lab / Microbiology Data Result Diagrams: 04/02/21 16:40 04/02/21 16:40 Discharge Plan Admission Admit Date/Time: 04/02/21 18:51 Primary Reason for Your Visit: Right eye double vision Attending Provider: Cynthia Acosta Primary Care Provider: Care Physician,No Primary Instructions Additional Instructions / Restrictions: * follow up with your appointment with Dr. Fernandez on 04/07/2021 at [facility] in [place], [place]. * Check Blood sugars daily and keep log to present to primary care provider. * Continue eye patching as needed. * Switch eye patch as needed. Patient Problems: Altered Health Status related to Hospitalization Patient Goals: *Optimal Level of Health *Keep Appointments *Medication Compliance *Remain Safe Discharge Orders/Prescriptions Prescriptions: New glipizide 5 mg Tablet 5 mg PO BID Qty: 60 RF: 0 metformin 500 mg tablet 500 mg PO BID Qty: 60 RF: 0 Continued atorvastatin 40 mg tablet 40 mg PO DAILY RF: 0 diltiazem HCl 180 mg capsule,extended release 24hr 180 mg PO BID RF: 0 clonidine HCl 0.2 mg tablet 0.2 mg PO BID RF: 0 aspirin 81 mg Tablet,Chewable 81 mg PO DAILY RF: 0 hydralazine 50 mg tablet 50 mg PO BID RF: 0 hydroxychloroquine 200 mg tablet 200 mg PO BID RF: 0 lisinopril 40 mg tablet 40 mg PO DAILY RF: 0 topiramate 100 mg tablet 300 mg PO DAILY RF: 0 escitalopram oxalate 20 mg tablet 20 mg PO DAILY RF: 0 Discontinued glipizide 5 mg tablet 5 mg PO DAILY RF: 0 Referrals / Follow Up: Modesto Araiza CONCRETE FINISHER APPRENTICE, CONCRETE FINISHER APPRENTICE-C [Nurse Practitioner] - See Referral Note (Make appointment to establish primary care. ) Disposition Disposition (needs filled in before D/C Order can be placed): Home, Self Care Charges/Coding Addendum Addendum: This patient was seen in conjunction with CINDY Perez. I have independently interviewed and examined the patient and reviewed pertinent historical, laboratory, and other data. Please refer to CINDY Perez's note for his patient's presentation, findings, and recommendations. I have reviewed and his note and concur with his documentation 66 year old female past medical history of uncontrolled diabetes who comes in with 2 days of diplopia. Patient was seen by rectangular tank cooper who sent her to the ED to rule out acute stroke. Patient's work-up during this hospital stay was unremarkable. MRI of the brain as well as MRA of the head and neck was unre markable. 2D echo shows EF of 55 to 60%, moderate to severe LVH. Telemetry neurology was consulted. Recommend the patient follow-up in the outpatient. HbA1c was 7.6. Changes were made to patient's glipizide. Patient was recommended to start Metformin. Declined. Physical Exam: Gen: Comfortable, not pale, not jaundiced, with left eye patch CVS:HS I +II, regular, no murmurs RESP: Diminished at lung bases GI: BS present and normal, soft, nontender, no palpable organs EXT:No edema Time spent discharging patient, coordinating with nursing, PT and OT/telemetry neurology: 30 minutes
== END 2021-04-03 11:46 | disposition home or self-care (01) ==
LOC: ED 17:55 → PCU 19:30
PROVIDERS: Emergency Provider Student in an Organized Health Care Education/Training Program; Visit Provider Internal Medicine
DX: H49.01 Third [oculomotor] nerve palsy, right eye (principal); M35.00 Sjogren syndrome, unspecified; M06.9 Rheumatoid arthritis, unspecified; E11.9 Type 2 diabetes mellitus without complications; I10 Essential (primary) hypertension; I65.22 Occlusion and stenosis of left carotid artery; Z79.84 Long term (current) use of oral hypoglycemic drugs; Z79.899 Other long term (current) drug therapy; Z79.82 Long term (current) use of aspirin; F43.10 Post-traumatic stress disorder, unspecified; F32.A Depression, unspecified; Z86.16 Personal history of COVID-19; E78.5 Hyperlipidemia, unspecified
CPT/HCPCS: 36415; 70450; 70544; 70547; 70551; 71045; 80053; 80061; 81001; 82962; 83036; 83735; 84484; 85025; 85610; 92523; 93005; 93306; 97165; 97802; 99218; 99284; Q9957; A4216; C8929; G0378

== ENCOUNTER 2021-04-20 09:35 | Outpatient (CLI) | payer MEDICARE, SELFPAY ==
[2021-04-20 12:46] LABS: Vitamin D,25 Hydroxy 28.4 ng/mL
[2021-04-20 12:53] LABS: Free T3 2.1 pg/mL (2.18-3.98); Magnesium 2.4 mg/dL (1.6-2.6); T4 Free Direct 0.99 ng/dL (0.76-1.46); Thyroid Stim Hormone (TSH) 2.93 uIU/mL (0.358-3.74)
== END 2021-04-20 23:59 | disposition short-term general hospital (02) ==
LOC: BIMLAB 09:36
PROVIDERS: PCP Internal Medicine; Referring Provider Internal Medicine; Visit Provider Internal Medicine
DX: M06.9 Rheumatoid arthritis, unspecified (principal); E11.9 Type 2 diabetes mellitus without complications; G47.30 Sleep apnea, unspecified; E78.00 Pure hypercholesterolemia, unspecified; E55.9 Vitamin D deficiency, unspecified; I10 Essential (primary) hypertension; F32.A Depression, unspecified; R53.83 Other fatigue
CPT/HCPCS: 36415; 82306; 83735; 84439; 84443; 84481

== ENCOUNTER 2021-05-20 09:47 | Outpatient (CLI) | payer MEDICARE, SELFPAY ==
--- NOTE | 2021-05-20 09:51 | CDU_ITS ---
Reason For Study: Bilateral carotid stenosis Rt. Velocities/BP Lt. Velocities/BP Prox CCA 73.4/13.4 cm/sec. Prox CCA 83.8/13.4 cm/sec. Mid CCA 72.1/14.7 cm/sec. Mid CCA 69.5/12.1 cm/sec. Dist CCA 63/10.8 cm/sec. Dist CCA 69.5/10.8 cm/sec. Prox ICA 66.9/14.7 cm/sec. Prox ICA 99.5/23.9 cm/sec. Mid ICA 79.9/23.9 cm/sec. Mid ICA 81.2/17.3 cm/sec. Dist ICA 79.9/18.6 cm/sec. Dist ICA 87.8/20 cm/sec. Rt. ICA/CCA = 1.11. Lt. ICA/CCA = 1.43. Prox ECA 103.4 cm/sec. Prox ECA 100.8 cm/sec. Rt. Vert. 52.5/14.7 cm/sec. Lt. Vert. 49.9/16 cm/sec. Right Extracranial There is homogeneous, smooth atherosclerotic plaque noted in the right common carotid artery. There is heterogeneous, irregular atherosclerotic plaque noted in the right internal carotid artery. There is intimal thickening but no significant atherosclerotic plaque noted in the right external carotid artery. Antegrade flow is noted in the right vertebral artery. Left Extracranial There is intimal thickening but no significant atherosclerotic plaque noted in the left common carotid artery. There is heterogeneous, irregular atherosclerotic plaque noted in the left internal carotid artery. There is intimal thickening but no significant atherosclerotic plaque noted in the left external carotid artery. Antegrade flow is noted in the left vertebral artery. Procedure Carotid Duplex 21697. This is a Carotid Duplex examination using B-mode, color flow and specral Doppler. Exam performed in department. VL/Carotid Duplex Ultrasound Interpretation Summary Minimal calcific plaque of the proximal right internal carotid artery with less than 50% stenosis. Less than 50% stenosis right external carotid artery Exophytic calcific plaque in the proximal left internal carotid artery with les s than 50% stenosis. Less than 50% stenosis left external carotid artery Patent and antegrade vertebral arteries bilaterally Ordering Physician: Lopez Saldaña Referring Physician: Susan Alvares M.D. Performed By: Crystal Hutchins RVT
== END 2021-05-20 23:59 | disposition home or self-care (01) ==
LOC: CVS 09:48
PROVIDERS: PCP Internal Medicine; Referring Provider Surgery; Visit Provider Surgery
DX: R55 Syncope and collapse (principal); I65.29 Occlusion and stenosis of unspecified carotid artery
CPT/HCPCS: 93880

== ENCOUNTER 2021-06-29 11:22 | Outpatient (CLI) | payer MEDICARE, SELFPAY ==
[2021-06-29 12:26] LABS: EXAGEN MAILED SPECIMEN
[2021-06-29 15:09] LABS: Color, Urine Yellow (Yellow); Glucose, Dipstick Normal (Normal); Ketone-Dipstick 5 mg/dl (Negative); Leukocyte Esterase-Dipstick Negative /ul (Negative); Nitrite-Dipstick Negative (Negative); Occult Blood-Urine Negative /ul (Negative); Protein-Dipstick 30 mg/dl (Negative); Urine Bilirubin Dipstick Negative (Negative); Urine Clarity Clear (Clear); Urine Urobilinogen Normal (Normal)
[2021-06-29 15:14] LABS: Absolute Lymphocyte Count 2.21 X10^3/uL (0.83-4.51); Absolute Neutrophil Count 8.6 X10^3/uL (2.0-7.7); Basophil# 0.12 X10^3/uL; Basophil% 0.9 % (0-1); Eosinophil# 1.15 X10^3/uL; Eosinophils% 8.9 % (0-5); Erythrocyte Sedimentation Rate 18 mm/hr (0-30); Hematocrit 42.7 % (37-47); Hemoglobin 14.2 g/dL (12.0-15.0); Lymphocyte # 2.21 X10^3/ul (0.83-4.51); Lymphocyte % 17.2 % (19-41); Mean Corp Hgb Conc 33.3 g/dL (32-36); Mean Corpuscular Hgb 29.3 pg (27.0-32.0); Mean Corpuscular Volume 88.2 fL (81-99); Mean Platelet Vol. 11.3 fl (6.2-12.0); Monocyte# 0.77 X10^3/uL; NRBC Flagged by Analyzer 0 % (0-5); Neutrophil # 8.56 X10^3/uL (2.7-7.7); Neutrophil % 66.5 % (47-70); Platelet Count 368 K/mm3 (150-450); RBC Distribution Width CV 13.4 % (11.6-14.6); RBC Distribution Width SD 43.4 fl (35.1-43.9); Red Blood Count 4.84 M/mm3 (4.2-5.4); White Blood Count 12.9 K/mm3 (4.4-11.0)
[2021-06-29 16:11] LABS: ALB/GLOB Ratio 0.9 RATIO (0.9-2.4); AST(SGOT) 18 U/L (15-37); Alanine Aminotransfer ALT/SGPT 24 U/L (13-56); Albumin, Serum 3.5 g/dL (3.2-5.0); Alkaline Phosphatase 104 U/L (45-117); Anion Gap 9 (5-15); BUN 11 mg/dL (7-18); BUN/Creat Ratio 11.9 RATIO (10-20); Calcium,Total 8.4 mg/dL (8.5-10.1); Chloride 107 mmol/L (98-107); Creatinine, Serum 0.92 mg/dL (0.55-1.02); EST Glomerular Filtration Rate 65 mL/min (>60); Est Glom Filt Rate - Afr Amer 78 mL/min (>60); Globulin 4.1 g/dL (2.2-4.2); Glucose 169 mg/dL (74-106); Potassium 3.5 mmol/L (3.5-5.1); Protein, Total 7.6 g/dL (6.4-8.2); Sodium Level 140 mmol/L (136-145)
[2021-06-29 16:18] LABS: Protein, Urine (Random) 36.2 mg/dL (<11.9); Protein:Creat Ratio 177 mg/g CRE (0-200)
[2021-06-30 09:39] LABS: Hepatitis B Surface Antibody Reactive; Hepatitis B Surface Antigen Non-Reactive (Nonreactive); Hepatitis C Antibody Non-Reactive (Nonreactive)
== END 2021-06-29 23:59 | disposition home or self-care (01) ==
LOC: MTLAB 11:23
PROVIDERS: PCP Internal Medicine; Referring Provider Internal Medicine Rheumatology; Visit Provider Internal Medicine Rheumatology
DX: M06.4 Inflammatory polyarthropathy (principal); E11.9 Type 2 diabetes mellitus without complications; R76.8 Other specified abnormal immunological findings in serum; M19.041 Primary osteoarthritis, right hand; H34.8112 Central retinal vein occlusion, right eye, stable; I10 Essential (primary) hypertension; E78.5 Hyperlipidemia, unspecified; F32.A Depression, unspecified; G47.33 Obstructive sleep apnea (adult) (pediatric)
CPT/HCPCS: 36415; 80053; 81002; 82570; 84156; 85025; 85652; 86140; 86706; 86803; 87340

== ENCOUNTER → 2021-12-11 | Outpatient (CLI) | payer MEDICARE, SELFPAY ==
[2021-12-11 12:17] LABS: Absolute Lymphocyte Count 2.85 X10^3/uL (0.83-4.51); Absolute Neutrophil Count 11.7 X10^3/uL (2.0-7.7); Basophil# 0.13 X10^3/uL; Basophil% 0.8 % (0-1); Eosinophil# 0.66 X10^3/uL; Hematocrit 47.6 % (37-47); Hemoglobin 15.5 g/dL (12.0-15.0); Lymphocyte # 2.85 X10^3/ul (0.83-4.51); Lymphocyte % 17.2 % (19-41); Mean Corp Hgb Conc 32.6 g/dL (32-36); Mean Corpuscular Hgb 28.8 pg (27.0-32.0); Mean Corpuscular Volume 88.3 fL (81-99); Mean Platelet Vol. 11.2 fl (6.2-12.0); Monocyte# 1.16 X10^3/uL; NRBC Flagged by Analyzer 0 % (0-5); Neutrophil # 11.68 X10^3/uL (2.7-7.7); Neutrophil % 70.6 % (47-70); Platelet Count 488 K/mm3 (150-450); RBC Distribution Width CV 14.6 % (11.6-14.6); RBC Distribution Width SD 47.2 fl (35.1-43.9); Red Blood Count 5.39 M/mm3 (4.2-5.4); White Blood Count 16.6 K/mm3 (4.4-11.0)
[2021-12-11 12:30] LABS: Vitamin D,25 Hydroxy 26.4 ng/mL
[2021-12-11 13:00] LABS: Hemoglobin A1c 7.7 % (3.8-5.6)
[2021-12-11 13:06] LABS: ALB/GLOB Ratio 0.7 RATIO (0.9-2.4); AST(SGOT) 22 U/L (15-37); Alanine Aminotransfer ALT/SGPT 33 U/L (13-56); Albumin, Serum 3.4 g/dL (3.2-5.0); Alkaline Phosphatase 111 U/L (45-117); Anion Gap 7 (5-15); BUN 11 mg/dL (7-18); BUN/Creat Ratio 10.4 RATIO (10-20); Calcium,Total 9.2 mg/dL (8.5-10.1); Chloride 107 mmol/L (98-107); Cholesterol 169 mg/dL (200); Creatinine, Serum 1.06 mg/dL (0.55-1.02); EST Glomerular Filtration Rate 55 mL/min (>60); Est Glom Filt Rate - Afr Amer 66 mL/min (>60); Globulin 4.9 g/dL (2.2-4.2); Glucose 248 mg/dL (74-106); High Density Lipoprotein 44 mg/dL; Potassium 4.2 mmol/L (3.5-5.1); Protein, Total 8.3 g/dL (6.4-8.2); Sodium Level 140 mmol/L (136-145); Thyroid Stim Hormone (TSH) 1.93 uIU/mL (0.358-3.74); Triglycerides 156 mg/dL; Very Low Density Lipoprotein 31 mg/dL (5-40)
== END | disposition home or self-care (01) ==
LOC: BIMLAB 10:56
PROVIDERS: PCP Internal Medicine; Referring Provider Internal Medicine; Visit Provider Internal Medicine
DX: E55.9 Vitamin D deficiency, unspecified (principal); E11.9 Type 2 diabetes mellitus without complications; E78.00 Pure hypercholesterolemia, unspecified; I10 Essential (primary) hypertension; F32.A Depression, unspecified
CPT/HCPCS: 36415; 80053; 80061; 82306; 83036; 84443; 85025

== ENCOUNTER → 2021-12-16 | Outpatient (CLI) | payer MEDICARE, SELFPAY | END | disposition home or self-care (01) | PROVIDERS: PCP Internal Medicine; Referring Provider Internal Medicine; Visit Provider Internal Medicine | DX: D72.829 Elevated white blood cell count, unspecified (principal); D75.839 Thrombocytosis, unspecified | CPT/HCPCS: 36415 ==

== ENCOUNTER → 2022-01-28 | Outpatient (CLI) | payer MEDICARE, SELFPAY ==
[2022-01-28 12:20] LABS: Absolute Lymphocyte Count 2.15 X10^3/uL (0.83-4.51); Absolute Neutrophil Count 9.1 X10^3/uL (2.0-7.7); Basophil% 0.8 % (0-1); Eosinophil# 0.74 X10^3/uL; Eosinophils% 5.6 % (0-5); Hematocrit 39.9 % (37-47); Lymphocyte # 2.15 X10^3/ul (0.83-4.51); Lymphocyte % 16.4 % (19-41); Mean Corp Hgb Conc 32.6 g/dL (32-36); Mean Corpuscular Hgb 28.1 pg (27.0-32.0); Mean Corpuscular Volume 86.4 fL (81-99); Mean Platelet Vol. 11.7 fl (6.2-12.0); Monocyte# 0.97 X10^3/uL; Monocyte% 7.4 % (0-10); NRBC Flagged by Analyzer 0 % (0-5); Neutrophil # 9.06 X10^3/uL (2.7-7.7); Neutrophil % 69.1 % (47-70); Platelet Count 414 K/mm3 (150-450); RBC Distribution Width CV 13.6 % (11.6-14.6); RBC Distribution Width SD 42.6 fl (35.1-43.9); Red Blood Count 4.62 M/mm3 (4.2-5.4); White Blood Count 13.1 K/mm3 (4.4-11.0)
[2022-01-28 12:33] LABS: ALB/GLOB Ratio 0.8 RATIO (0.9-2.4); AST(SGOT) 11 U/L (15-37); Alanine Aminotransfer ALT/SGPT 19 U/L (13-56); Albumin, Serum 3.1 g/dL (3.2-5.0); Alkaline Phosphatase 97 U/L (45-117); Anion Gap 4 (5-15); BUN 13 mg/dL (7-18); BUN/Creat Ratio 14.2 RATIO (10-20); Calcium,Total 8.7 mg/dL (8.5-10.1); Chloride 109 mmol/L (98-107); Creatinine, Serum 0.92 mg/dL (0.55-1.02); EST Glomerular Filtration Rate 65 mL/min (>60); Est Glom Filt Rate - Afr Amer 79 mL/min (>60); Globulin 4.1 g/dL (2.2-4.2); Glucose 170 mg/dL (74-106); Potassium 4.1 mmol/L (3.5-5.1); Protein, Total 7.2 g/dL (6.4-8.2); Sodium Level 141 mmol/L (136-145)
== END | disposition home or self-care (01) ==
LOC: BIMLAB 09:55
PROVIDERS: PCP Internal Medicine; Referring Provider Internal Medicine Rheumatology; Visit Provider Internal Medicine Rheumatology
DX: M06.4 Inflammatory polyarthropathy (principal); E11.9 Type 2 diabetes mellitus without complications; R76.8 Other specified abnormal immunological findings in serum; M19.041 Primary osteoarthritis, right hand; H34.8112 Central retinal vein occlusion, right eye, stable; I10 Essential (primary) hypertension; E78.5 Hyperlipidemia, unspecified; F32.A Depression, unspecified; G47.33 Obstructive sleep apnea (adult) (pediatric)
CPT/HCPCS: 36415; 80053; 85025

== ENCOUNTER → 2022-04-20 | Outpatient (CLI) | payer MEDICARE, SELFPAY ==
[2022-04-20 12:28] LABS: Absolute Lymphocyte Count 1.98 X10^3/uL (0.83-4.51); Absolute Neutrophil Count 9.4 X10^3/uL (2.0-7.7); Basophil% 0.8 % (0-1); Eosinophil# 0.75 X10^3/uL; Eosinophils% 5.7 % (0-5); Hematocrit 40.6 % (37-47); Hemoglobin 13.3 g/dL (12.0-15.0); Lymphocyte # 1.98 X10^3/ul (0.83-4.51); Lymphocyte % 15.1 % (19-41); Mean Corp Hgb Conc 32.8 g/dL (32-36); Mean Corpuscular Hgb 28.8 pg (27.0-32.0); Mean Corpuscular Volume 87.9 fL (81-99); Mean Platelet Vol. 10.6 fl (6.2-12.0); Monocyte# 0.84 X10^3/uL; Monocyte% 6.4 % (0-10); NRBC Flagged by Analyzer 0 % (0-5); Neutrophil # 9.39 X10^3/uL (2.7-7.7); Neutrophil % 71.5 % (47-70); Platelet Count 367 K/mm3 (150-450); RBC Distribution Width CV 14.3 % (11.6-14.6); Red Blood Count 4.62 M/mm3 (4.2-5.4); White Blood Count 13.1 K/mm3 (4.4-11.0)
[2022-04-20 12:51] LABS: ALB/GLOB Ratio 0.8 RATIO (0.9-2.4); AST(SGOT) 14 U/L (15-37); Alanine Aminotransfer ALT/SGPT 25 U/L (13-56); Albumin, Serum 3.1 g/dL (3.2-5.0); Alkaline Phosphatase 93 U/L (45-117); Anion Gap 6 (5-15); BUN 10 mg/dL (7-18); BUN/Creat Ratio 11.2 RATIO (10-20); Calcium,Total 8.6 mg/dL (8.5-10.1); Chloride 112 mmol/L (98-107); EST Glomerular Filtration Rate 67 mL/min (>60); Est Glom Filt Rate - Afr Amer 80 mL/min (>60); Globulin 3.8 g/dL (2.2-4.2); Glucose 162 mg/dL (74-106); Potassium 4.2 mmol/L (3.5-5.1); Protein, Total 6.9 g/dL (6.4-8.2); Sodium Level 143 mmol/L (136-145)
== END | disposition home or self-care (01) ==
LOC: MTLAB 11:22
PROVIDERS: PCP Internal Medicine; Referring Provider Internal Medicine Rheumatology; Visit Provider Internal Medicine Rheumatology
DX: M06.4 Inflammatory polyarthropathy (principal); M35.00 Sjogren syndrome, unspecified; Z79.899 Other long term (current) drug therapy
CPT/HCPCS: 36415; 80053; 85025

== ENCOUNTER → 2022-07-23 | Outpatient (CLI) | payer MEDICARE, SELFPAY ==
[2022-07-23 12:16] LABS: Absolute Lymphocyte Count 2.02 X10^3/uL (0.83-4.51); Absolute Neutrophil Count 10.7 X10^3/uL (2.0-7.7); Basophil# 0.11 X10^3/uL; Basophil% 0.8 % (0-1); Eosinophil# 0.69 X10^3/uL; Eosinophils% 4.7 % (0-5); Hematocrit 40.9 % (37-47); Hemoglobin 13.4 g/dL (12.0-15.0); Lymphocyte # 2.02 X10^3/ul (0.83-4.51); Lymphocyte % 13.9 % (19-41); Mean Corp Hgb Conc 32.8 g/dL (32-36); Mean Corpuscular Hgb 29.4 pg (27.0-32.0); Mean Corpuscular Volume 89.7 fL (81-99); Mean Platelet Vol. 11.4 fl (6.2-12.0); Monocyte# 0.96 X10^3/uL; Monocyte% 6.6 % (0-10); NRBC Flagged by Analyzer 0 % (0-5); Neutrophil # 10.67 X10^3/uL (2.7-7.7); Neutrophil % 73.4 % (47-70); Platelet Count 363 K/mm3 (150-450); RBC Distribution Width CV 13.8 % (11.6-14.6); RBC Distribution Width SD 44.8 fl (35.1-43.9); Red Blood Count 4.56 M/mm3 (4.2-5.4); White Blood Count 14.5 K/mm3 (4.4-11.0)
[2022-07-23 12:51] LABS: Anion Gap 4 (5-15); BUN 19 mg/dL (7-18); BUN/Creat Ratio 19.9 RATIO (10-20); Calcium,Total 8.9 mg/dL (8.5-10.1); Chloride 109 mmol/L (98-107); Creatinine, Serum 0.95 mg/dL (0.55-1.02); EST Glomerular Filtration Rate 62 mL/min (>60); Est Glom Filt Rate - Afr Amer 75 mL/min (>60); Glucose 194 mg/dL (74-106); Potassium 3.6 mmol/L (3.5-5.1); Sodium Level 139 mmol/L (136-145)
[2022-07-27 16:09] LABS: Immunoglobulin A 443 mg/dL (87-352); Immunoglobulin G 1017 mg/dL (586-1602); Immunoglobulin M 94 mg/dL (26-217)
== END | disposition home or self-care (01) ==
LOC: BIMLAB 11:18
PROVIDERS: PCP Internal Medicine; Referring Provider Internal Medicine Cardiovascular Disease; Visit Provider Internal Medicine Cardiovascular Disease
DX: E85.9 Amyloidosis, unspecified (principal)
CPT/HCPCS: 36415; 80048; 82784; 85025; 86334; 86335

== ENCOUNTER 2022-08-06 07:08 | Day surgery (SDC) | payer MEDICARE, SELFPAY ==
[2022-08-05 07:49] VITALS: BMI 43.5
--- NOTE | 2022-08-06 08:49 | CL.D_ITS ---
Patient Name: TIMOTHY RODRIGUEZ Study Date: 08/06/2022 Performing: Hunter Talbert MD Ht: 62 inches 157.48 cm : 1955 Wt: 237.99 lbs 107.95 kg Age: 67 Gender: female BSA: 2.06 PROCEDURE(S) PERFORMED [id number]-(77943)LHC/COR/LV CLINICAL PROFILE AND INDICATIONS Indications: Suspected CAD Heart Failure: None CONCLUSIONS Non obstructive coronary arteries Mitral Valve Calcification- Severe RECOMMENDATIONS Medical therapy DESCRIPTION OF PROCEDURE The patient arrived to the procedure lab. The risks and benefits of the procedure as well as a full description of our services here and current unavailability of surgical backup were fully explained to the patient and/or their significant other prior to the catheterization. The Timeout was completed, verifying the correct patient and procedure. The patient's procedural site was prepped and draped in the usual fashion. Local anesthetic was given subcutaneously to right radial region with Lidocaine 2%. Using a modified Seldinger technique, arterial access was obtained via the right radial artery, a 6Fr sheath was inserted. Left Coronary Artery selective angiography was performed in multiple views using a 5 Fr. 4.0 Winthrop catheter. Right Coronary Artery selective angiography was then performed in multiple views using a 6 Fr. 4.0 Winthrop catheter. Left Ventriculography was performed in RUIZ projection using a 5 Fr. Pigtail catheter. LV to AO pullback pressures were then recorded.The arterial sheath was pulled and a TR Band was applied for hemostasis. 10cc of air CORONARY ANGIOGRAPHY DOMINANCE: Right Dominant LEFT HEART ASSESSMENT Left Ventricular Ejection Fraction: by LV Gram 65 % Normal LV wall motion Normal Left Ventricular systolic function LEFT MAIN: Angiographically normal LEFT ANTERIOR DESCENDING ARTERY: Mild luminal irregularities less than 30% CIRCUMFLEX ARTERY: Mild luminal irregularities less than 30% RIGHT CORONARY ARTERY: Mild luminal irregularities VALVE FINDINGS: Mitral Valve Calcification Severe COMPLICATIONS No Complications PROCEDURE MEDICATIONS Fentanyl 50 mcg IV Versed 1 mg IV Versed 1 mg IV Oxygen: 2 L/min via nasal cannula Heparin given IA 08/06/2022 08:22:05 Verapamil 2.5mg, Ntg 100mcgs, 3000 units of Heparin given IA 08/06/2022 08:22:05 SUMMARY OF HEMODYNAMIC DATA Time AIR REST ECG 07:33:19 ECG 07:36:09 AO 134/67 (93) SA 08:24:44 LV 161/11, 26 08:31:29 LV 170/7, 27 08:31:39 LV 146/18, 24 08:32:02 LVp 155/18, 24 08:32:08 AOp 152/70 (104) 08:32:13 Signed By Hunter Talbert MD On 08/06/2022 08:48:49 Hunter Talbert MD
== END 2022-08-06 10:25 | disposition home or self-care (01) ==
PROVIDERS: PCP Internal Medicine; Referring Provider Internal Medicine Cardiovascular Disease; Visit Provider Internal Medicine Cardiovascular Disease
DX: I25.10 Atherosclerotic heart disease of native coronary artery without angina pectoris (principal); E11.9 Type 2 diabetes mellitus without complications; G47.30 Sleep apnea, unspecified; E66.9 Obesity, unspecified; I10 Essential (primary) hypertension; E78.00 Pure hypercholesterolemia, unspecified; F32.A Depression, unspecified; Z79.82 Long term (current) use of aspirin; Z79.899 Other long term (current) drug therapy; Z79.84 Long term (current) use of oral hypoglycemic drugs
CPT/HCPCS: 93458; 99152; 99153; J7040; Q9967; C1769; C1894

== ENCOUNTER → 2022-08-27 | Outpatient (CLI) | payer MEDICARE, SELFPAY ==
--- NOTE | 2022-08-27 09:52 | NM_ITS ---
CLINICAL: 67-year-old female with suspected cardiac amyloidosis. 99m Tc PYROPHOSPHATE CARDIAC AMYLOID EXAMINATION COMPARISON: None available FINDINGS: Following the intravenous administration of 26.0 mCi of 99m Tc pyrophosphate, anterior acquisitions of the thorax reveal: 1. Planar projections demonstrate no visualized increased pharmaceutical concentration within the context of the left ventricular myocardium for a Perugini score of 0. The heart to contralateral ratio was calculated to be 1.10 (normal < 1.5:1). NM/PYP SPECT for Cardiac Amyloid IMPRESSION: 1. NEGATIVE EXAMINATION. There is no scintigraphic evidence of ATTR cardiac amyloidosis on the current evaluation. (Clara et al, Diagnostics 11: 996, 2020). Electronically Signed: Igor Nunez, at 7:41 EDT ,
== END | disposition home or self-care (01) ==
LOC: NM 09:51
PROVIDERS: PCP Internal Medicine; Referring Provider Internal Medicine Cardiovascular Disease; Visit Provider Internal Medicine Cardiovascular Disease
DX: E85.9 Amyloidosis, unspecified (principal)
CPT/HCPCS: 78803; A9538

== ENCOUNTER → 2022-11-17 | Outpatient (CLI) | payer MEDICARE, SELFPAY ==
[2022-11-17 12:14] LABS: Absolute Lymphocyte Count 2.33 X10^3/uL (0.83-4.51); Absolute Neutrophil Count 10.6 X10^3/uL (2.0-7.7); Basophil# 0.12 X10^3/uL; Basophil% 0.8 % (0-1); Eosinophil# 0.91 X10^3/uL; Hematocrit 42.3 % (37-47); Lymphocyte # 2.33 X10^3/ul (0.83-4.51); Lymphocyte % 15.5 % (19-41); Mean Corp Hgb Conc 33.1 g/dL (32-36); Mean Corpuscular Hgb 28.7 pg (27.0-32.0); Mean Corpuscular Volume 86.7 fL (81-99); Mean Platelet Vol. 11.6 fl (6.2-12.0); Monocyte% 6.6 % (0-10); NRBC Flagged by Analyzer 0 % (0-5); Neutrophil # 10.59 X10^3/uL (2.7-7.7); Neutrophil % 70.3 % (47-70); Platelet Count 383 K/mm3 (150-450); RBC Distribution Width SD 44.9 fl (35.1-43.9); Red Blood Count 4.88 M/mm3 (4.2-5.4); White Blood Count 15.1 K/mm3 (4.4-11.0)
[2022-11-17 13:44] LABS: ALB/GLOB Ratio 0.8 RATIO (0.9-2.4); AST(SGOT) 18 U/L (15-37); Alanine Aminotransfer ALT/SGPT 22 U/L (13-56); Albumin, Serum 3.2 g/dL (3.2-5.0); Alkaline Phosphatase 110 U/L (45-117); Anion Gap 7 (5-15); BUN 13 mg/dL (7-18); Calcium,Total 8.4 mg/dL (8.5-10.1); Chloride 109 mmol/L (98-107); EST Glomerular Filtration Rate 59 mL/min (>60); Est Glom Filt Rate - Afr Amer 71 mL/min (>60); Globulin 4.1 g/dL (2.2-4.2); Glucose 169 mg/dL (74-106); Potassium 3.8 mmol/L (3.5-5.1); Protein, Total 7.3 g/dL (6.4-8.2); Sodium Level 139 mmol/L (136-145)
== END | disposition home or self-care (01) ==
LOC: BIMLAB 10:22
PROVIDERS: PCP Internal Medicine; Visit Provider Internal Medicine Rheumatology
DX: M06.4 Inflammatory polyarthropathy (principal); Z79.899 Other long term (current) drug therapy
CPT/HCPCS: 36415; 80053; 85025

== ENCOUNTER → 2023-04-08 | Outpatient (CLI) | payer MEDICARE, SELFPAY ==
--- NOTE | 2023-04-08 12:45 | ECHOCS_ITS ---
Reason For Study: MURMUR Procedure This was a 2D Doppler, Color Flow transthoracic echocardiogram. The study was technically difficult. Due to body habitus. Contrast injection was performed. Exam performed in department. Left Ventricle Normal LV size. Moderate concentric left ventricular hypertrophy. Left ventricular systolic function is normal. The estimated ejection fraction is 65 %. Stage 1 diastolic dysfunction. No regional wall motion abnormalities noted. Right Ventricle Normal RV size. Normal systolic function. Atria Normal left atrium. The right atrium is mildly enlarged. Mitral Valve There is moderate mitral annular calcification. Tricuspid Valve Normal tricuspid valve. Pulmonic Valve The pulmonic valve is not well visualized. Great Vessels Normal aortic root. The pulmonary artery is normal size. Inferior vena cava collapse with respiration. Pericardium/Pleural No pericardial effusion. Medication 22 gauge I.V. with prn adaptor inserted into left arm. Diluted definity 3.0ml given slow IV push to enhance endocardial definition. MMode/2D Measurements & Calculations LVIDd: 3.6 cm IVSd: 1.6 cm Ao root diam: 2.5 cm LVIDs: 2.4 cm LVPWd: 2.1 cm RVDd: 3.0 cm FS: 34.5 % LAV(MOD-bp): 66.9 ml LVAd ap4: 28.8 cm2 LVAd ap2: 18.9 cm2 LAV(MOD-bp) Indexed: 32.4 ml/m2 LVLd ap4: 7.7 cm LVLd ap2: 7.0 cm LAV(MOD-sp2): 60.7 ml EDV(MOD-sp4): 91.1 ml EDV(MOD-sp2): 43.2 ml LAV(MOD-sp4): 67.1 ml EDV(sp4-el): 91.4 ml EDV(sp2-el): 43.5 ml LVAs ap4: 14.0 cm2 LVAs ap2: 8.4 cm2 LVLs ap4: 6.1 cm LVLs ap2: 4.7 cm ESV(MOD-sp4): 29.8 ml ESV(MOD-sp2): 13.6 ml ESV(sp4-el): 27.2 ml ESV(sp2-el): 12.8 ml EF(MOD-sp4): 67.2 % EF(MOD-sp2): 68.5 % EF(sp4-el): 70.3 % SV(MOD-sp4): 61.2 ml SV(MOD-sp2): 29.6 ml SV(sp4-el): 64.3 ml LA dimension(2D): 4.3 cm LA A4 area: 21.4 cm2 RA A4 area: 13.0 cm2 Time Measurements MV dec time: 0.23 sec Doppler Measurements & Calculations MV E max gurpreet: 95.3 cm/sec Lat Peak E' Gurpreet: 4.8 cm/sec Med Peak E' Gurpreet: 3.7 cm/sec MV A max gurpreet: 112.4 cm/sec E/E' lat: 19.8 E/E' med: 26.0 MV E/A: 0.85 MV V2 max: 130.8 cm/sec MV P1/2t max gurpreet: 112.9 cm/sec Ao V2 max: 153.4 cm/sec MV max P.9 mmHg MV P1/2t: 78.0 msec Ao max P.4 mmHg MV V2 mean: 75.5 cm/sec MV dec slope: 423.8 cm/sec2 Ao V2 mean: 107.7 cm/sec MV mean P.6 mmHg Ao mean P.2 mmHg MV V2 VTI: 39.5 cm MVA(P1/2t): 2.8 cm2 Ao V2 VTI: 31.4 cm AV (velocity ratio): 0.91 LV V1 max: 128.0 cm/sec PA V2 max: 101.2 cm/sec LV V1 max P.6 mmHg PA V2 mean: 67.4 cm/sec LV V1 mean P.9 mmHg LV V1 mean: 93.0 cm/sec LV V1 VTI: 28.6 cm ECHO/Echo Complete W/ Contrast Interpretation Summary Normal LV size. Moderate concentric left ventricular hypertrophy. Left ventricular systolic function is normal. The estimated ejection fraction is 65 %. Stage 1 diastolic dysfunction. Contrast injection was performed. Ordering Physician: Gloria Vasquez Referring Physician: Susan Alvares Performed By: Blossom Valera RDCS, RVT
--- OUTSIDE RECORDS SUMMARY | 2023-04-08 13:04 | XMS RPT_ITS | CCD ---
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[employer] Name Role Phone Susan Alvares MD Primary Care Provider HUNTER GÓMEZ Referring Unavailable SUSAN ALVARES Primary Care Unavailable Susan Alvares MD Primary Care Provider [phone] Problems Problem Classification Problem Date Documented Da te Episodic/Chronic Other and ill-defined heart disease (1 source) Cardiomegaly; Translations: [Cardiomegaly] Onset: 06-07-2022 Chronic Results Test Name Value Interpretation Reference Range Facil ity Vital Signs Date Time Vital Sign Value Performing Clinician Faci lit 06-07-2022 09:52-0400 Body height 154.9 cm Mri Bore/1.5t ) [facility] 06-07-2022 09:52-0400 Body weight 104.33 kg Mri Bore/1.5t ) [facility] Encounters Encounter Date Encounter Type Care Provider Facility Start: 06-07-2022 ambulatory [facility]UNTER G[facility]MEZ [facility] Start: 06-07-2022 End: 06-07-2022 Subsequent hospital visit by physician Mri [facility] (I-Stat/Lg Bore/1.5t) [facility] Procedures Date Procedure Procedure Detail Performing Clinician Start: 06-07-2022 Cardiac mri w/wo con trast & further seq Hunter Gómez Work Phone: Plan of Treatment Date Care Activity Detail Author Start: 03-28-2022 ADVANCE DIRECTIVE DISCUSSION ADVANCE DIRECTIVE DISCUSSION [facility] Start: 03-28-2022 DEPRESSION ASSESSMENT DEPRESSION ASS ESSMENT [facility] Start: 11-26-2021 Influenza vaccination C [facility] Start: 03-28-2021 ADVANCE DIRECTIVE DISCUSSION ADVANCE DIRECTIVE DISCUSSION [facility] Start: 09-02-2020 COVID-19 VACCINE (3 - Booster for Pfizer series) COVID-19 VACCINE (3 - Booster for Pfizer series) [facility] Start: 2019 BONE DENSITY BONE DENSITY [facility] Start: 2019 PNEUMOCOCCAL: 65+ (1 - PCV) PNEUMOCOCCAL: 65+ (1 - PCV) [facility] Start: 2019 PNEUMOVAX AGE 65 AND OVER WITH 5YR LOOKBACK (#1) PNEUMOVAX AGE 65 AND OVER WITH 5YR LOOKBACK (#1) [facility] Start: 01-30-2004 SHINGRIX VACCINE (1 of 2) SHINGRIX V ACCINE (1 of 2) [facility] Start: 1999 COLOGUARD (FIT-DNA) COLOGUARD (FIT-D NA) [facility] Start: 1999 Colonoscopy COLONOSCOPY [facility] Start: 1999 COLORECTAL CANCER SCREENING COLORECTAL CANCER SCREENING [facility] Start: [address] COLONOGRAPHY [facility] Start: 1999 DIABETES SCREEN DIABETES SCREEN [facility] Start: 1999 FECAL OCCULT BLOOD FECAL OCCULT BLOO D [facility] Start: 1999 LIPID SCREEN LIPID SCREEN [facility] Start: 1999 SIGMOIDOSCOPY [facility] Start: 1994 Mammography MAMMOGRAM [facility] Start: 1973 Urine microalbumin profile DTAP,TDAP ,TD (1 - Tdap) [facility] Start: 01-30-1972 HEPATITIS C SCREENING HEPATITIS C SC REENING [facility] Start: 1966 [facility] DEPRESSION SCREENING [facility] Start: 1959 COVID-19 VACCINE (1) COVID-19 VACCIN E (1) [facility] Start: 1954 COVID-19 VACCINE (#1) COVID-19 VACCI NE (#1) [facility] Payers Date Payer Category Payer Medicare HUMANA MEDICARE HU[employer]NA MEDICARE PPO [id number] 2021-Present [phone] [place] [address] PPO [id number] 2021 Medicare HUMANA MEDICARE HU[employer]NA MEDICARE PPO [id number] 2021-Present [phone] [address] [address] [place] [address] PPO [id number] 2021 Medicare [id number] Social History Date Type Detail Facility Tobacco smoking stat [facility] Tobacco smoking consumption unknown [facility] Start: 1955 Sex Assigned At Not on file C [facility] Progress note 06-07-2022 Note Date & Type Note Facility 06-07-2022 Note HNO ID: [id number] Author: RT Paige(Skylar) Service: Radiology Author Type: Technologist Type: Progress Notes Filed: 06/07/2022 9:49 AM Note Text: Radiology Service Progress Note DATE OF SERVICE: June 07, 2022 TIME: 9:48 AM PATIENT IDENTITY VERIFICATION COMPLETED USING TWO (2) STANDARD IDENTIFIERS: Name and Date of confirmed by patient verbally and Name and Date of confirmed by identification band. FALL SCREENING: Has the patient had 2 falls in the last year or 1 fall with injury or currently using an Ambulatory Assistive Device (Walker, Cane, Wheelchair, Crutches, etc.)? No PATIENT GENDER DATA: Female. status: : No status: NO. PATIENT RELEVANT IMPLANT DATA REVIEWED: Yes ALLERGIES: Reviewed and unchanged CONTRAST ALLERGY: NO. EXAM: MRI - CONTRAST TYPE: GROUP II PERIPHERAL IV DATA: Ambulatory: A peripheral IV was started in the hand antecubital site with a Angio cath: 22 gauge. RADIOLOGY DEPARTMENT: MR; Exam(s) Completed: Cardiac: Cardiac SIGNATURE: RT Paige(R) PATIENT NAME: Kristyn Collado DATE: June 07, 2022 TIME: 9:48 AM [facility] History of Present illness Narrative 06-07-2022 JARRETT GibsonR) - 06/07/2022 9:00 AM EDT Note Date & Type Note Facility 06-07-2022 History of Presen t illness Narrative Radiology Service Progress Note DATE OF SERVICE: June 07, 2022 TIME: 9:48 AM PATIENT IDENTITY VERIFICATION COMPLETED USING TWO (2) STANDARD IDENTIFIERS: Name and Date of confirmed by patient verbally and Name and Date of confirmed by identification band. FALL SCREENING: Has the patient had 2 falls in the last year or 1 fall with injury or currently using an Ambulatory Assistive Device (Walker, Cane, Wheelchair, Crutches, etc.)? No PATIENT GENDER DATA: Female. status: : No status: NO. PATIENT RELEVANT IMPLANT DATA REVIEWED: Yes ALLERGIES: Reviewed and unchanged CONTRAST ALLERGY: NO. EXAM: MRI - CONTRAST TYPE: GROUP II PERIPHERAL IV DATA: Ambulatory: A peripheral IV was started in the hand antecubital site with a Angio cath: 22 gauge. RADIOLOGY DEPARTMENT: MR; Exam(s) Completed: Cardiac: Cardiac SIGNATURE: RT Paige(R) PATIENT NAME: Kristyn Collado DATE: June 07, 2022 TIME: 9:48 AM documented in this encounter [facility] Note 06-02-2022 Telephone Encounter - Reagan Milton MD - 06/02/2022 1:56 PM ESTTelephone Encounter - JARRETT ThompsonR) - 06/02/2022 12:39 PM EST Note Date & Type Note Facility 06-02-2022 Miscellaneous Notes Formattin g of this note might be different from the original. HCM/Amyloid protocol Hello, Get the dark, and bright bloods. Quality 2 chamber, 4 chamber, 3 chamber, LVOT long, short cine images. Run a venc data analytics analyst in the 3 C view. Once you get the non aliased thru plane venc, get thru plane venc under the aortic valve (go up on the venc until there is no aliasing on the Qs under the valve Qs cine), and one in plane venc (3 C) without aliasing. STIR the 4 C, 2 C, one short axis, inject contrast, get first pass, and get delayed images at 8 min. Also get regular Qp, Qs. I would get QS ( ascending aorta at the level of the main PA. Make sure that you are perpendicular to the ascending aorta using the 3C, LVOT long) at venc 200, 250, 300 or even higher until the aliasing disappears completely. Also, on the Qs, make sure that the SVC appears as a nightmute/oval (if the SVC is not seen on the QS, then pls get a slice higher up to get the SVC). T1 mapping ( 3 levels base, mid, apex), T2 mapping , T2* required. Thanks, Dr Milton Summary: CMR CMR Protocol needed for this outpatient scheduled on 06/07/22. Order and reports in Scanned Documents. Thank you documented in this encounter [facility] Note 07-23-2021 Telephone Encounter - Reagan Milton MD - 07/23/2021 11:44 AM EDTTelephone Encounter - KAYLI Thompson) - 07/23/2021 9:14 AM EDT Note Date & Type Note Facility 07-23-2021 Miscellaneous Notes Hello, I would double stack on the dark, and bright bloods. Quality 2 chamber, 4 chamber, 3 chamber, LVOT long, short cine images. Run a venc data analytics analyst in the 3 C view. Once you get the non aliased thru plane venc, get thru plane venc under the aortic valve, and one in plane venc (3 C) without aliasing. STIR the 4 C, 2 C, one short axis, inject contrast, get first pass, and get delayed images at 8 min. Also get Qp, Qs. T1 mapping ( 3 levels base, mid, apex), T2 mapping , T2* required. Thanks, Dr Milton ummary: CMR Protocol Patient scheduled for CMR tomorrow 07/24/21 however scheduling has been unable to get order from physician. Protocol request will be sent as soon as order is scanned into [employer]. Just wanted to let you know in advance, so that you know why we are sending request so late. documented in this encounter [facility] Reason for visit Narrative Diagnostic Procedure Only (Routine) - Authorized Note Date & Type Note Facility Referral ID Status Reason Start Date Expiration Date V isits Requested Visits Authorized [id number] Authorized 06/07/2022 07/07/2022 2 2 [facility] Summary Purpose Family History No Family History Records Found Advance Directives No Advanced Directives Records Found Additional Source Comments Source Comments (unrecognize d section and content) In the event this informatio n is protected by the Federal Confidentiality of Alcohol and Drug Abuse Patient Records regulations: The Federal rules restrict any use of the information to criminally investigate or prosecute any alcohol or drug abuse patient.[facility] the event this information is protected by the Federal Confidentiality of Alcohol and Drug Abuse Patient Records regulations: The Federal rules restrict any use of the information to criminally investigate or prosecute any alcohol or drug abuse patient.[facility] the event this information is protected by the Federal Confidentiality of Alcohol and Drug Abuse Patient Records regulations: The Federal rules restrict any use of the information to criminally investigate or prosecute any alcohol or drug abuse patient.[facility] Reason for Visit (unrecogniz ed section and content) Care Teams (unrecognized sec tion and content) 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 This clinical summary was aggregated from multiple sources. Caution should be exercised in using it in the provision of clinical care. This summary normalizes information from multiple sources, and as a consequence, information in this document may materially change the coding, format and clinical context of patient data. In addition, data may be omitted in some cases. CLINICAL DECISIONS SHOULD BE BASED ON THE PRIMARY CLINICAL RECORDS. [employer] [facility]. provides no warranty or guarantee of the accuracy or completeness of information in this document.
== END | disposition home or self-care (01) ==
PROVIDERS: PCP Internal Medicine; Referring Provider Physician Assistant Medical; Visit Provider Physician Assistant Medical
DX: R55 Syncope and collapse (principal)
CPT/HCPCS: 93306; Q9957; A4216; C8929

== ENCOUNTER → 2023-05-03 | Outpatient (CLI) | payer MEDICARE, SELFPAY ==
[2023-05-03 15:00] LABS: Absolute Lymphocyte Count 2.27 X10^3/uL (0.83-4.51); Absolute Neutrophil Count 10.2 X10^3/uL (2.0-7.7); Basophil# 0.14 X10^3/uL; Eosinophil# 0.68 X10^3/uL; Eosinophils% 4.7 % (0-5); Hematocrit 42.5 % (37-47); Hemoglobin 13.1 g/dL (12.0-15.0); Lymphocyte # 2.27 X10^3/ul (0.83-4.51); Lymphocyte % 15.8 % (19-41); Mean Corp Hgb Conc 30.8 g/dL (32-36); Mean Corpuscular Hgb 26.4 pg (27.0-32.0); Mean Corpuscular Volume 85.7 fL (81-99); Mean Platelet Vol. 11.5 fl (6.2-12.0); Monocyte# 0.99 X10^3/uL; Monocyte% 6.9 % (0-10); NRBC Flagged by Analyzer 0 % (0-5); Neutrophil # 10.22 X10^3/uL (2.7-7.7); Neutrophil % 71.1 % (47-70); Platelet Count 404 K/mm3 (150-450); RBC Distribution Width CV 14.8 % (11.6-14.6); RBC Distribution Width SD 45.9 fl (35.1-43.9); Red Blood Count 4.96 M/mm3 (4.2-5.4); White Blood Count 14.4 K/mm3 (4.4-11.0)
[2023-05-03 15:12] LABS: ALB/GLOB Ratio 0.8 RATIO (0.9-2.4); AST(SGOT) 17 U/L (15-37); Alanine Aminotransfer ALT/SGPT 24 U/L (13-56); Albumin, Serum 3.2 g/dL (3.2-5.0); Alkaline Phosphatase 115 U/L (45-117); Anion Gap 2 (5-15); BUN 14 mg/dL (7-18); BUN/Creat Ratio 14.2 RATIO (10-20); Chloride 109 mmol/L (98-107); Creatinine, Serum 0.98 mg/dL (0.55-1.02); EST Glomerular Filtration Rate 59 mL/min (>60); Est Glom Filt Rate - Afr Amer 72 mL/min (>60); Globulin 4.1 g/dL (2.2-4.2); Glucose 160 mg/dL (74-106); Potassium 4.4 mmol/L (3.5-5.1); Protein, Total 7.3 g/dL (6.4-8.2); Sodium Level 138 mmol/L (136-145)
== END | disposition home or self-care (01) ==
LOC: BIMLAB 11:41
PROVIDERS: PCP Internal Medicine; Referring Provider Internal Medicine Rheumatology; Visit Provider Internal Medicine Rheumatology
DX: M06.4 Inflammatory polyarthropathy (principal); M35.00 Sjogren syndrome, unspecified; Z79.899 Other long term (current) drug therapy
CPT/HCPCS: 36415; 80053; 85025

== ENCOUNTER → 2023-11-04 | Outpatient (CLI) | payer MEDICARE, SELFPAY ==
[2023-11-04 12:25] LABS: Absolute Lymphocyte Count 2.06 X10^3/uL (0.83-4.51); Absolute Neutrophil Count 11.3 X10^3/uL (2.0-7.7); Basophil# 0.12 X10^3/uL; Basophil% 0.8 % (0-1); Eosinophil# 0.78 X10^3/uL; Hematocrit 38.4 % (37-47); Hemoglobin 11.9 g/dL (12.0-15.0); Lymphocyte # 2.06 X10^3/ul (0.83-4.51); Lymphocyte % 13.2 % (19-41); Mean Corpuscular Hgb 25.9 pg (27.0-32.0); Mean Corpuscular Volume 83.5 fL (81-99); Mean Platelet Vol. 11.2 fl (6.2-12.0); Monocyte# 1.19 X10^3/uL; Monocyte% 7.6 % (0-10); NRBC Flagged by Analyzer 0 % (0-5); Neutrophil # 11.34 X10^3/uL (2.7-7.7); Neutrophil % 72.6 % (47-70); Platelet Count 404 K/mm3 (150-450); RBC Distribution Width CV 15.1 % (11.6-14.6); RBC Distribution Width SD 45.2 fl (35.1-43.9); White Blood Count 15.6 K/mm3 (4.4-11.0)
[2023-11-04 12:51] LABS: ALB/GLOB Ratio 0.7 RATIO (0.9-2.4); AST(SGOT) 29 U/L (15-37); Alanine Aminotransfer ALT/SGPT 33 U/L (13-56); Alkaline Phosphatase 113 U/L (45-117); Anion Gap 5 (5-15); BUN 10 mg/dL (7-18); BUN/Creat Ratio 11.8 RATIO (10-20); Calcium,Total 8.7 mg/dL (8.5-10.1); Chloride 103 mmol/L (98-107); Creatinine, Serum 0.85 mg/dL (0.55-1.02); EST Glomerular Filtration Rate 71 mL/min (>60); Est Glom Filt Rate - Afr Amer 86 mL/min (>60); Globulin 4.3 g/dL (2.2-4.2); Glucose 232 mg/dL (74-106); Potassium 4.1 mmol/L (3.5-5.1); Protein, Total 7.3 g/dL (6.4-8.2); Sodium Level 137 mmol/L (136-145)
== END | disposition home or self-care (01) ==
LOC: BIMLAB 11:01
PROVIDERS: PCP Internal Medicine; Referring Provider Internal Medicine Rheumatology; Visit Provider Internal Medicine Rheumatology
DX: M06.4 Inflammatory polyarthropathy (principal); M35.00 Sjogren syndrome, unspecified; M19.041 Primary osteoarthritis, right hand; Z79.899 Other long term (current) drug therapy
CPT/HCPCS: 36415; 80053; 85025

== ENCOUNTER 2023-11-18 13:20 | Emergency (ER) | payer MEDICARE, SELFPAY ==
[2023-11-18 13:21] VITALS: BP 205/81; PULSE 83; RESP 22; TEMP 36.4; O2SAT 96; BMI 46.6
[2023-11-18 13:51] VITALS: O2SAT 96
--- NOTE | 2023-11-18 13:51 | ED.VIS.DYS ---
HPI History of Present Illness Chief Complaint: Shortness of Breath Detail of Chief Complaint: Shortness of breath that started abruptly yesterday Informant: patient Onset/Context/Timing Onset: Yesterday Context: sudden Timing: Continuous Quality: Positive for Dyspnea on exertion; Negative for Orthopnea, PND or Wheezing Current Severity: Mild Maximum Severity: Moderate Worsened by: Exertion; Not Worsened By Lying flat (Patient sleeps in a upright position due to arthritis and has done so for years), Coughing or other Associated Symptoms Negative for cough, rhinorrhea, post nasal drip, ear pain, fever, sore throat, subjective, chills, sweats, clear sputum, white sputum, yellow sputum or green sputum Chest Pain: Positive for None Narrative Narrative: Patient is a 68-year-old woman. She has history of diabetes. She is concerned because her blood sugars have been elevated from the 2 50-3 50 range. She has a past history of amyloidosis, thrombocytopenia, carotid stenosis, left ventricular hypertrophy, essential hypertension, hypercholesterolemia, sleep apnea on BiPAP, diabetes, Sjogren's and rheumatoid arthritis. She presents with abrupt onset of shortness of breath. She was putting gas in the mower for her . He mowed the yard. She does endorse polydipsia denies polyuria. She presently complains of thirst. She denies fever, chills night sweats. Denies headache, visual, ocular auditory symptoms. No trouble with speech or swallowing. She denies chest pain, pleuritic pain, orthopnea or PND. She denies swelling of her ankles. She denies history of congestive heart failure. Patient denies abdominal pain, black or maroon-colored stool. Patient has no history of VTE. She has no risk factors for VTE. PE Risk Factors: Negative for Cancer, OCP + Smoking + > 35, Prior DVT or PE, Recent immobilization, Recent surgery or Recent travel Prior similar symptoms: No Recent Illness/Hospitalization: No PFSH PFSH Medical History Carotid stenosis Severe left ventricular hypertrophy Obesity Essential hypertension Syncope Sjogren's disease 3rd cranial nerve palsy Rheumatoid arthritis PTSD (post-traumatic stress disorder) Depression Leukocytosis Sleep apnea with use of nocturnal bilevel positive airway pressure (BPAP) Hypercholesteremia Diabetes Home Medications ?Medication ?Instructions ?Recorded ?Last Taken ?Type aspirin 81 mg chewable tablet 81 mg PO DAILY heart health 04/02/21 08/06/22 History hydroxychloroquine 200 mg tablet 200 mg PO BID inflammation 04/02/21 Unknown History lisinopril 40 mg tablet 40 mg PO DAILY blood pressure 04/02/21 08/06/22 History ferrous sulfate 325 mg (65 mg 325 mg PO DAILY 04/20/21 Unknown History iron) tablet (Feosol) omega-3 fatty acids 1,000 mg 1,000 mg PO DAILY 04/20/21 Unknown History capsule blood sugar diagnostic (Truetest #100 ea 07/27/21 Unknown Rx Test Strips) cholecalciferol (vitamin D3) 25 25 mcg PO MOWEFR 07/23/22 Unknown History mcg (1,000 unit) capsule glipizide 10 mg tablet 5 mg PO BID 07/23/22 Unknown History atorvastatin 40 mg tablet 40 mg PO DAILY cholesterol #90 tabs 10/01/22 Unknown Rx escitalopram oxalate 20 mg tablet 20 mg PO DAILY mental health #90 01/19/23 Unknown Rx tabs diltiazem HCl 180 mg 180 mg PO BID heart rate #180 caps 05/30/23 Unknown Rx capsule,extended release 24 hr hydralazine 50 mg tablet 75 mg (1.5 x 50 mg) PO BID blood 10/13/23 Unknown Rx pressure #405 tabs nebivolol 5 mg tablet (Bystolic) 5 mg PO DAILY #30 tabs 11/15/23 Unknown Rx dorzolamide 22.3 mg-timolol 6.8 1 drp ophthalmic (eye) Q12H 11/18/23 Unknown History mg/mL eye drops trazodone 50 mg tablet 50 mg PO QHS 11/18/23 Unknown History Allergy/AdvReac Type Severity Reaction Status Date / Time No Known Allergies Allergy Verified 11/18/23 13:23 Family History Other Breast cancer Cancer Diabetes Kidney disease Surgical History History of cataract surgery H/O: hysterectomy Social History Smoking Status: Never smoker alcohol intake: never substance use type: does not use caffeine: Yes (Occasionally) ROS ROS ED Constitutional Constitutional ED: Denies chills, fever(s), sweats or weight loss Eyes Eyes: Denies blurry vision or change in vision ENT ENT ED: Denies ear pain, rhinorrhea or sore throat Cardiovascular Cardiovascular: Denies chest pain, orthopnea, palpitations, paroxysmal nocturnal dyspnea or racing heartbeat Respiratory/Chest Respiratory/Chest: Reports dyspnea; Denies cough, dyspnea on exertion, orthopnea or paroxysmal nocturnal dyspnea Gastrointestinal Gastrointestinal: Denies abdominal pain, melena, nausea or vomiting Genitourinary Genitourinary ED: Denies dysuria, hematuria or urinary frequency Musculoskeletal Musculoskeletal: Denies arthralgias or myalgias Integumentary Denies rash Neurologic Neurologic: Denies headache(s), paresthesias or weakness Hematologic/Lymphatic Hematologic/Lymphatic: Denies easy bleeding or easy bruising EXAM Physical Exam Const Vital Signs: 11/18/23 13:21 11/18/23 13:51 11/18/23 14:58 Temperature 97.5 F L Temperature Source Temporal Pulse Rate 83 62 Respiratory Rate 22 H 18 Respiratory Effort Non-Labored Respiratory Depth Normal Blood Pressure 205/81 H 163/63 H Blood Pressure Mean 122 96 Pulse Ox 96 93 Oxygen Delivery Method Room Air Room Air Room Air Positive well nourished and well developed Constitutional Narrative: Patient is tachypneic. There is no use of discuss her muscles. General Appearance ED: well developed; Negative for pallor HEENT Reports dry mucous membranes HEENT Narrative: Head is normocephalic. Ears normal. Nares patent. atraumatic Mouth ED: Yes dry mucous membranes Mouth: dry mucous membranes Eyes PERRL and EOMs intact bilaterally General Eye ED: Negative for pale conjunctiva or scleral icterus Neck no lymphadenopathy, supple, no meningeal signs and no JVD Resp normal respiratory effort and clear to auscultation bilaterally Cardio regular rate, regular rhythm, S1 normal heart sound, S2 normal heart sound and no murmurs GI non-tender, non-distended and no masses Auscultation: normoactive bowel sounds Palpation: soft Back/Spine no CVA tenderness and normal to inspection Extremity normal to inspection Extremity Narrative: There is no swelling, asymmetry, discoloration, ligamentous tension, palp cords times on the distribution deep venous system. General Extremety ED: Negative for edema or tenderness General Extremity: Negative for edema Neuro oriented x3 and CN's II-XII intact bilaterally Sensorium / Orientation: alert Psych mental status grossly normal Skin no wounds and skin turgor normal General Skin Exam: Negative for jaundice or pallor MDM MDM MDM Narrative Medical decision making narrative: Differential diagnosis includes DKA, pneumonia, pulmonary embolus, congestive heart failure shortness of breath of unknown etiology. Patient has no risk factors for VTE. Will obtain a D-dimer since she is low probability. This may represent cardiac ischemia. Will obtain troponin. Lab Data Attestation: I reviewed the patient's lab results. Lab results narrative: White count is slight elevated 13.5 thousand. Differential is normal. D-dimer is less than 0.27. Basic metabolic panel is remarkable slight elevation of creatinine of 1.07. Estimated GFR is 54. Troponin is 14. Blood sugar was 295. CO2 anion gap is normal.. Troponin is normal with symptoms that started greater than 20 hours ago. Labs: Laboratory Results - last 24 hr 11/18/23 11/18/23 13:45 13:47 WBC 13.5 H RBC 4.48 Hgb 11.9 L Hct 37.1 MCV 82.8 MCH 26.6 L MCHC 32.1 RDW Std Deviation 46.5 H RDW Coeff of Comfort 15.3 H Plt Count 371 MPV 10.3 Immature Gran % (Auto) 0.700 Neut % (Auto) 73.5 H Lymph % (Auto) 13.9 L Guadalupe % (Auto) 7.2 Eos % (Auto) 4.0 Baso % (Auto) 0.7 Absolute Neuts (auto) 9.9 H Absolute Lymphs (auto) 1.87 Nucleated RBC % 0 D-Dimer Quant (PE/DVT) < 0.27 L Sodium 138 Potassium 3.9 Chloride 103 Carbon Dioxide 28.0 Anion Gap 7 BUN 12 Creatinine 1.07 H Estim Creat Clear Calc 59.79 Est GFR (MDRD) Af Amer 65 Est GFR (MDRD) Non-Af 54 L BUN/Creatinine Ratio 11.2 Glucose 310 H Calcium 8.7 Troponin I High Sens 14 POC Glucose 295 H Radiography Chest X-Ray - ED: Read by ED Physician (2 view chest x-ray is suboptimal. There is no cardiomegaly. Cardiac silhouette is normal. There is no evidence of infiltrate, pneumothorax or heart failure. There is no effusion. Osseous structures unremarkable. This is entirely reviewed interpreted by me.) Diagnostic Testing: Clinical Impression(s) from Imaging Studies Chest X-Ray 11/18/23 13:57 IMPRESSION: Mild thyromegaly. The lungs are clear. Electronically Signed: Enrique Dave MD at 14:19 EDT , Treatment and Re-Evaluation :: Patient was informed of her test results. Patient states she feels better. Will discharge to home. She was informed the cause of her shortness of breath and hyperglycemia is uncertain. Discharge Plan Triage Chief Complaint: Shortness of Breath ED Provider: Marty Wright Dx/Rx/DC Orders Clinical Impression: Acute dyspnea, Sjogren's disease, Essential hypertension, Hypercholesteremia, Sleep apnea with use of nocturnal bilevel positive airway pressure (BPAP), Controlled type 2 diabetes mellitus with hyperglycemia, without long-term current use of insulin Instructions: ED Diabetic Hyperglycemia, ED Dyspnea Prescriptions: No Action omega-3 fatty acids 1,000 mg capsule 1,000 mg PO DAILY ferrous sulfate [Feosol] 325 mg (65 mg iron) tablet 325 mg PO DAILY cholecalciferol (vitamin D3) 25 mcg (1,000 unit) capsule 25 mcg PO MOWEFR glipizide 10 mg tablet 5 mg PO BID hydralazine 50 mg tablet 75 mg PO BID Qty: 405 3RF aspirin 81 mg Tablet,Chewable 81 mg PO DAILY hydroxychloroquine 200 mg tablet 200 mg PO BID lisinopril 40 mg tablet 40 mg PO DAILY trazodone 50 mg tablet 50 mg PO QHS dorzolamide-timolol 22.3-6.8 mg/mL drops 1 drp ophthalmic (eye) Q12H (DME) Truetest Test Strips Strip See Rx Instructions .ROUTE .MEDSUPPLY Qty: 100 3RF Rx Instructions: Test twice daily atorvastatin 40 mg tablet 40 mg PO DAILY Qty: 90 3RF escitalopram oxalate 20 mg tablet 20 mg PO DAILY Qty: 90 3RF diltiazem HCl 180 mg capsule,extended release 24hr 180 mg PO BID Qty: 180 3RF nebivolol [Bystolic] 5 mg tablet 5 mg PO DAILY Qty: 30 11RF Primary Care Provider: Susan Alvares Referrals: Susan Alvares MD [Primary Care Provider] - 5-7 Days Print Language: Faroese Disposition Disposition: Home, Self Care
[2023-11-18 13:52] LABS: Absolute Lymphocyte Count 1.87 X10^3/uL (0.83-4.51); Absolute Neutrophil Count 9.9 X10^3/uL (2.0-7.7); Basophil# 0.09 X10^3/uL; Basophil% 0.7 % (0-1); Eosinophil# 0.54 X10^3/uL; Hematocrit 37.1 % (37-47); Hemoglobin 11.9 g/dL (12.0-15.0); Lymphocyte # 1.87 X10^3/ul (0.83-4.51); Lymphocyte % 13.9 % (19-41); Mean Corp Hgb Conc 32.1 g/dL (32-36); Mean Corpuscular Hgb 26.6 pg (27.0-32.0); Mean Corpuscular Volume 82.8 fL (81-99); Mean Platelet Vol. 10.3 fl (6.2-12.0); Monocyte# 0.97 X10^3/uL; Monocyte% 7.2 % (0-10); NRBC Flagged by Analyzer 0 % (0-5); Neutrophil # 9.92 X10^3/uL (2.7-7.7); Neutrophil % 73.5 % (47-70); Platelet Count 371 K/mm3 (150-450); RBC Distribution Width CV 15.3 % (11.6-14.6); RBC Distribution Width SD 46.5 fl (35.1-43.9); Red Blood Count 4.48 M/mm3 (4.2-5.4); White Blood Count 13.5 K/mm3 (4.4-11.0)
--- NOTE | 2023-11-18 13:57 | RAD_ITS ---
STUDY: X-RAY CHEST REASON FOR EXAM: Female, 68 years old. Dyspnea TECHNIQUE: PA and lateral views of the chest. COMPARISON: Comparison is made with prior study dated April 02, 2021. FINDINGS: EKG electrodes are seen. The lungs are clear and expanded. There is no demonstrated pleural abnormality. There is mild cardiac enlargement. Normal mediastinum and desire. Normal visualized pulmonary arteries. There is atherosclerotic calcification of the aortic arch with tortuosity. There are diffuse degenerative changes of the visualized thoracic spine. Normal visualized ribs, clavicles, and shoulders. There is no demonstrated abnormality of the visualized soft tissue structures of the upper abdomen. RAD/Chest PA and Lateral IMPRESSION: Mild thyromegaly. The lungs are clear. Electronically Signed: Enrique Dave MD at 14:19 EDT ,
[2023-11-18 14:07] LABS: D-Dimer Quantitative (DVT/PE) < 0.27 FEU/ug/m (0.27-0.49)
[2023-11-18 14:11] LABS: Bedside Glucose 295 mg/dL (74-106)
[2023-11-18 14:15] LABS: Anion Gap 7 (5-15); BUN 12 mg/dL (7-18); BUN/Creat Ratio 11.2 RATIO (10-20); Calcium,Total 8.7 mg/dL (8.5-10.1); Chloride 103 mmol/L (98-107); Creatinine, Serum 1.07 mg/dL (0.55-1.02); EST Glomerular Filtration Rate 54 mL/min (>60); Est Glom Filt Rate - Afr Amer 65 mL/min (>60); Estimated Creatinine Clearance 59.79 ml/min; Glucose 310 mg/dL (74-106); Potassium 3.9 mmol/L (3.5-5.1); Sodium Level 138 mmol/L (136-145); Troponin-I HS 14 pg/mL (3.0-54.0)
[2023-11-18] MEDS: Insulin Lispro 100 UNIT/ML INSULN.PEN SC (14:56)
[2023-11-18 14:58] VITALS: BP 163/63; PULSE 62; RESP 18; O2SAT 93
[2023-11-18 17:20] VITALS: BP 138/76; PULSE 72; RESP 15; TEMP 36.2; O2SAT 96
== END 2023-11-18 17:46 | disposition home or self-care (01) ==
PROVIDERS: Emergency Provider Emergency Medicine; PCP Internal Medicine; Visit Provider Emergency Medicine
DX: R06.00 Dyspnea, unspecified (principal); E11.65 Type 2 diabetes mellitus with hyperglycemia; G47.30 Sleep apnea, unspecified; E78.00 Pure hypercholesterolemia, unspecified; I10 Essential (primary) hypertension; Z79.82 Long term (current) use of aspirin; Z79.899 Other long term (current) drug therapy; Z79.84 Long term (current) use of oral hypoglycemic drugs
CPT/HCPCS: 71046; 80048; 82962; 84484; 85025; 85379; 93005; 99284; A4216

== ENCOUNTER → 2023-11-22 | Outpatient (CLI) | payer MEDICARE, SELFPAY ==
[2023-11-22 13:37] LABS: Vitamin B12 569 pg/mL (211-911); Vitamin D,25 Hydroxy 33.2 ng/mL
[2023-11-22 14:10] LABS: ALB/GLOB Ratio 0.7 RATIO (0.9-2.4); AST(SGOT) 20 U/L (15-37); Alanine Aminotransfer ALT/SGPT 32 U/L (13-56); Alkaline Phosphatase 110 U/L (45-117); Anion Gap 8 (5-15); BUN 15 mg/dL (7-18); BUN/Creat Ratio 15.4 RATIO (10-20); Calcium,Total 8.7 mg/dL (8.5-10.1); Chloride 106 mmol/L (98-107); Cholesterol 142 mg/dL (200); Creatinine, Serum 0.97 mg/dL (0.55-1.02); EST Glomerular Filtration Rate 60 mL/min (>60); Est Glom Filt Rate - Afr Amer 73 mL/min (>60); Globulin 4.1 g/dL (2.2-4.2); Glucose 225 mg/dL (74-106); High Density Lipoprotein 41 mg/dL; Magnesium 2.2 mg/dL (1.6-2.6); Potassium 3.9 mmol/L (3.5-5.1); Protein, Total 7.1 g/dL (6.4-8.2); Sodium Level 142 mmol/L (136-145); Triglycerides 169 mg/dL; Very Low Density Lipoprotein 34 mg/dL (5-40)
[2023-11-22 16:05] LABS: Hemoglobin A1c 8.1 % (3.8-5.6)
== END | disposition home or self-care (01) ==
LOC: BIMLAB 10:31
PROVIDERS: PCP Internal Medicine; Referring Provider Internal Medicine; Visit Provider Internal Medicine
DX: I10 Essential (primary) hypertension (principal); E11.65 Type 2 diabetes mellitus with hyperglycemia; E55.9 Vitamin D deficiency, unspecified; F32.A Depression, unspecified
CPT/HCPCS: 36415; 80053; 80061; 82306; 82607; 83036; 83735; 84443

== ENCOUNTER → 2024-02-17 | Outpatient (CLI) | payer MEDICARE, SELFPAY ==
[2024-02-17 15:39] LABS: Absolute Neutrophil Count 9.5 X10^3/uL (2.0-7.7); Basophil# 0.11 X10^3/uL; Basophil% 0.8 % (0-1); Eosinophil# 0.64 X10^3/uL; Eosinophils% 4.7 % (0-5); Hematocrit 40.3 % (37-47); Lymphocyte % 15.5 % (19-41); Mean Corp Hgb Conc 29.8 g/dL (32-36); Mean Corpuscular Hgb 25.1 pg (27.0-32.0); Mean Corpuscular Volume 84.1 fL (81-99); Mean Platelet Vol. 11.6 fl (6.2-12.0); Monocyte# 1.12 X10^3/uL; Monocyte% 8.3 % (0-10); NRBC Flagged by Analyzer 0 % (0-5); Neutrophil # 9.53 X10^3/uL (2.7-7.7); Neutrophil % 70.3 % (47-70); Platelet Count 395 K/mm3 (150-450); RBC Distribution Width CV 14.8 % (11.6-14.6); RBC Distribution Width SD 44.8 fl (35.1-43.9); Red Blood Count 4.79 M/mm3 (4.2-5.4); White Blood Count 13.6 K/mm3 (4.4-11.0)
[2024-02-17 16:10] LABS: ALB/GLOB Ratio 0.7 RATIO (0.9-2.4); AST(SGOT) 14 U/L (15-37); Alanine Aminotransfer ALT/SGPT 25 U/L (13-56); Alkaline Phosphatase 83 U/L (45-117); Anion Gap 6 (5-15); BUN 13 mg/dL (7-18); BUN/Creat Ratio 13.8 RATIO (10-20); Calcium,Total 8.9 mg/dL (8.5-10.1); Chloride 107 mmol/L (98-107); Creatinine, Serum 0.94 mg/dL (0.55-1.02); EST Glomerular Filtration Rate 62 mL/min (>60); Est Glom Filt Rate - Afr Amer 75 mL/min (>60); Globulin 4.1 g/dL (2.2-4.2); Glucose 87 mg/dL (74-106); Potassium 4.2 mmol/L (3.5-5.1); Protein, Total 7.1 g/dL (6.4-8.2); Sodium Level 142 mmol/L (136-145)
[2024-02-17 16:37] LABS: Hemoglobin A1c 6.2 % (3.8-5.6)
== END | disposition home or self-care (01) ==
LOC: BIMLAB 11:35
PROVIDERS: Internal Medicine Rheumatology; PCP Internal Medicine; Referring Provider Internal Medicine; Visit Provider Internal Medicine
DX: M06.4 Inflammatory polyarthropathy (principal); M35.00 Sjogren syndrome, unspecified; M19.041 Primary osteoarthritis, right hand; Z79.899 Other long term (current) drug therapy
CPT/HCPCS: 36415; 80053; 83036; 85025

== ENCOUNTER → 2024-05-07 | Outpatient (CLI) | payer MEDICARE, SELFPAY ==
--- NOTE | 2024-05-07 12:48 | ECHOCS_ITS ---
Reason For Study: SYNCOPE Procedure This was a 2D Doppler, Color Flow transthoracic echocardiogram. The study was technically difficult. Contrast injection was performed. Exam performed in department. Left Ventricle Normal LV size. Moderate concentric left ventricular hypertrophy. Left ventricular systolic function is normal. The left ventricular ejection fraction is 70 %. No regional wall motion abnormalities noted. Right Ventricle Normal RV size. Normal systolic function. Atria Normal left atrium. Normal right atrium. Mitral Valve There is severe mitral annular calcification. Tricuspid Valve Normal tricuspid valve. Aortic Valve Trisinus/trileaflet aortic valve. Pulmonic Valve The pulmonic valve is not well visualized. Great Vessels Calcified aortic root. The pulmonary artery is normal size. Inferior vena cava collapse with respiration. Pericardium/Pleural No pericardial effusion. Medication 22 gauge I.V. with prn adaptor inserted into left arm. Diluted definity 2ml given slow IV push to enhance endocardial definition. MMode/2D Measurements & Calculations LVIDd: 3.8 cm IVSd: 1.5 cm LVOT diam: 1.9 cm LVIDs: 1.9 cm LVPWd: 1.6 cm RVDd: 3.7 cm FS: 51.3 % LVOT area: 2.8 cm2 _ asc Aorta Diam: 3.2 cm LAV(MOD-bp): 60.0 ml LVAd ap4: 30.0 cm2 LAV(MOD-bp) Indexed: 28.8 ml/m2 LVLd ap4: 8.1 cm LAV(MOD-sp2): 68.5 ml EDV(MOD- sp4): 89.6 ml LAV(MOD-sp4): 52.0 ml EDV(sp4- el): 93.9 ml LVAs ap4: 12.5 cm2 LVLs ap4: 6.5 cm ESV(MOD- sp4): 20.6 ml ESV(sp4- el): 20.4 ml EF(MOD- sp4): 77.0 % EF(sp4- el): 78.2 % _ LVAd ap2: 28.8 cm2 SV(MOD-sp4): 69.0 ml SV(MOD- sp2): 57.1 ml LVLd ap2: 7.7 cm SI(MOD-sp4): 33.1 ml/m2 SI(MOD- sp2): 27.3 ml/m2 EDV(MOD-sp2): 87.1 ml EDV(sp2-el): 91.5 ml LVAs ap2: 15.4 cm2 LVLs ap2: 6.7 cm ESV(MOD-sp2): 30.0 ml ESV(sp2-el): 30.0 ml EF(MOD-sp2): 65.5 % _ SV(sp4-el): 73.4 ml Ao sinus diam: 2.6 cm LA A4 area: 18.8 cm2 _ LA dimension(2D): 4.1 cm RA A4 area: 11.7 cm2 TAPSE: 2.1 cm Time Measurements MV dec time: 0.26 sec Doppler Measurements & Calculations MV E max gurpreet: 95.8 cm/sec Lat Peak E' Gurpreet: 5.4 cm/sec Med Peak E' Gurpreet: 9.8 cm/sec MV A max gurpreet: 97.3 cm/sec E/E' lat: 17.7 E/E' med: 9.8 MV E/A: 0.98 _ MV V2 max: 136.1 cm/sec Ao V2 max: 200.8 cm/sec MV max P.4 mmHg MV dec slope: 362.8 cm/sec2 Ao max P.2 mmHg MV V2 mean: 72.7 cm/sec Ao V2 mean: 144.2 cm/sec MV mean P.5 mmHg Ao mean P.5 mmHg MV V2 VTI: 46.3 cm Ao V2 VTI: 43.2 cm AV (velocity ratio): 0.78 MVA(VTI): 2.1 cm2 GERMAN(I,D): 2.2 cm2 GERMAN(V,D): 1.9 cm2 _ LV V1 max: 135.6 cm/sec SV(LVOT): 95.5 ml PA V2 max: 109.8 cm/sec LV V1 max P.4 mmHg LV V1 mean P.2 mmHg LV V1 mean: 98.0 cm/sec LV V1 VTI: 33.6 cm ECHO/Echo Complete W/ Contrast Interpretation Summary Normal LV size. Left ventricular systolic function is normal. The left ventricular ejection fraction is 70 %. Moderate concentric left ventricular hypertrophy. Contrast injection was performed. Ordering Physician: Gloria Vasquez Referring Physician: Susan Alvares M.D. Performed By: Elmira Cruz RDCS
== END | disposition home or self-care (01) ==
LOC: CVS 12:47
PROVIDERS: PCP Internal Medicine; Referring Provider Physician Assistant Medical; Visit Provider Physician Assistant Medical
DX: R55 Syncope and collapse (principal)
CPT/HCPCS: 93306; Q9957; A4216; C8929

== ENCOUNTER 2024-05-25 09:41 | Outpatient (RCR) | payer MEDICARE, SELFPAY ==
--- NOTE | 2024-05-25 10:36 | HP.PTEVAL ---
Patient's Visit Information Visit Information Visit Information: TIMOTHY RODRIGUEZ is a 69 year old F referred to Physical Therapy by Dr. Susan Alvares MD with a diagnosis of dizziness and giddiness. Date of Evaluation: 05/25/24 Physical Therapist: OUSMANE Churchill Visit Plan Plan: DC PT. We could not bring on the patients dizziness symptoms. She does have a balance issue but does not want to work on that at this time until she finds out what is causing her dizziness. She will be discharged from our care at this time Subjective Subjective: At the end of Nov started with vertigo and nausea and vomiting. Every week she would get it. She got a cardiac work up and it was working fine. She was told to come here. Last week she had an episode twice. It seems that it is always in the morning. She sleeps in a recliner. She has not tried to lay down due to her arthritis. Sometimes she will be sitting there and the room will start moving. They last about an hour and does not feeling good after the episode. She is not dizzy right now. Her balance is off normally but worse when this happens. They have given her meclizine but does not help. She is uncomfortable walking on uneven surfaces and makes her feel off balance. She has not fallen recently Objective Objective: smooth pursuit horizontal X 30 seconds with no dizziness Smooth pursuit vertical X 30 seconds with no dizziness Head and eyes move together back and forth from Target to Target X 30 seconds no dizziness both horizontal and vertical FGA 15 (no dizziness during testing) CATSIB 110/120 (no dizziness during testing) - Hallpike B for dizziness or nystagmus Balance/Special Test Scores Functional Gait Assessment Score: 15 % Disability: 50.0000 CATSIB Score (Max score 120 seconds): 110 Dizziness Score: 46 Anticipated Interventions Text: Thank you for the opportunity to evaluate your patient. For Medicare and Medicare HMO plans, please review the plan of care and approve it. It will need to be FAXED BACK to us at [phone] for Medicare purposes. For Medicare only, by signing this I certify the plan of care. Please let me know if there are questions or concerns regarding this plan of care. Physician Signature: Date:
--- NOTE | 2024-07-24 09:22 | HP.PTDCSUM ---
Discharge Summary D/C summary: It has been my pleasure to treat TIMOTHY RODRIGUEZ referred by Dr. Susan Alvares MD, with the diagnosis of dizziness and giddiness for a total of 1 visit(s). Discharge Date: Please see the following information for a summary of their discharge status. Plan Plan: DC PT. We could not bring on the patients dizziness symptoms. She does have a balance issue but does not want to work on that at this time until she finds out what is causing her dizziness. She will be discharged from our care at this time D/C Information d/c sentence: If there are questions or concerns regarding this patient's physical therapy, please feel free to call me at [phone]. Thank you for the referral of this patient. Sincerely, Meredith Keane, OUSMANE Balance/Gait/Functional tests Balance/Special Test Scores Functional Gait Assessment Score: 15 % Disability: 50.0000 CATSIB Score (Max score 120 seconds): 110 Dizziness Score: 46
== END 2024-05-25 19:00 | disposition home or self-care (01) ==
LOC: PT 09:41
PROVIDERS: PCP Internal Medicine; Referring Provider Internal Medicine; Visit Provider Internal Medicine
DX: R42 Dizziness and giddiness (principal)
CPT/HCPCS: 97161

== ENCOUNTER → 2024-08-06 | Outpatient (CLI) | payer MEDICARE, SELFPAY ==
[2024-08-06 15:41] LABS: Absolute Lymphocyte Count 1.97 X10^3/uL (0.83-4.51); Absolute Neutrophil Count 10.2 X10^3/uL (2.0-7.7); Basophil# 0.12 X10^3/uL; Basophil% 0.8 % (0-1); Eosinophil# 1.46 X10^3/uL; Eosinophils% 9.9 % (0-5); Hematocrit 43.3 % (37-47); Hemoglobin 13.7 g/dL (12.0-15.0); Lymphocyte # 1.97 X10^3/ul (0.83-4.51); Lymphocyte % 13.3 % (19-41); Mean Corp Hgb Conc 31.6 g/dL (32-36); Mean Corpuscular Hgb 28.3 pg (27.0-32.0); Mean Corpuscular Volume 89.5 fL (81-99); Monocyte# 0.95 X10^3/uL; Monocyte% 6.4 % (0-10); NRBC Flagged by Analyzer 0 % (0-5); Neutrophil # 10.24 X10^3/uL (2.7-7.7); Neutrophil % 69.1 % (47-70); Platelet Count 356 K/mm3 (150-450); RBC Distribution Width CV 14.9 % (11.6-14.6); Red Blood Count 4.84 M/mm3 (4.2-5.4); White Blood Count 14.8 K/mm3 (4.4-11.0)
[2024-08-06 16:11] LABS: ALB/GLOB Ratio 1.1 RATIO (0.9-2.4); AST(SGOT) 23 U/L (<=31); Alanine Aminotransfer ALT/SGPT 15 U/L (<=34); Albumin, Serum 3.8 g/dL (3.4-4.8); Alkaline Phosphatase 114 U/L (35-104); Anion Gap 12 (5-15); BUN 8 mg/dL (4-19); BUN/Creat Ratio 9.8 RATIO (10-20); Calcium,Total 8.9 mg/dL (7.6-11.0); Carbon Dioxide 26.6 mmol/L (21.0-32.0); Chloride 104 mmol/L (98-108); Cholesterol 136 mg/dL (<=200); Creatinine, Serum 0.86 mg/dL (0.70-1.20); EST Glomerular Filtration Rate 72 (>60); Globulin 3.4 g/dL (2.2-4.2); Glucose 130 mg/dL (70-99); High Density Lipoprotein 36 mg/dL; Low Density Lipoprotein Calc. 74 mg/dL; Potassium 4.4 mmol/L (3.3-5.1); Protein, Total 7.2 g/dL (5.9-8.4); Sodium Level 143 mmol/L (133-145); Total Bilirubin 0.41 mg/dL (0.00-1.30); Triglycerides 129 mg/dL; Very Low Density Lipoprotein 26 mg/dL (5-40); cholesterol:hdl ratio screen 3.78
[2024-08-06 16:36] LABS: Hemoglobin A1c 6.9 % (<=5.6)
== END | disposition home or self-care (01) ==
LOC: BIMLAB 12:00
PROVIDERS: PCP Internal Medicine; Referring Provider Internal Medicine; Visit Provider Internal Medicine
DX: H53.2 Diplopia (principal); R53.83 Other fatigue; I10 Essential (primary) hypertension; E78.00 Pure hypercholesterolemia, unspecified; R73.9 Hyperglycemia, unspecified
CPT/HCPCS: 36415; 80053; 80061; 83036; 84443; 85025

== ENCOUNTER → 2025-01-10 | Outpatient (CLI) | payer MEDICARE, SELFPAY ==
--- NOTE | 2025-01-10 08:52 | CDU_ITS ---
Reason For Study Reason For Study: Carotid bruit Rt. Velocities/BP Lt. Velocities/BP Prox CCA 59.8/9.7 cm/sec. Prox CCA 94.9/12.4 cm/sec. Mid CCA 57/10.7 cm/sec. Mid CCA 72.9/8 cm/sec. Dist CCA 41.9/7.8 cm/sec. Dist CCA 69.6/8 cm/sec. Prox ICA 81.4/15.1 cm/sec. Prox ICA 111.5/25 cm/sec. Mid ICA 75.8/15.6 cm/sec. Mid ICA 112/22.5 cm/sec. Dist ICA 112/17 cm/sec. Dist ICA 71.8/13.5 cm/sec. Rt. ICA/CCA = 1.96. Lt. ICA/CCA = 1.54. Prox ECA 107.2/4.1 cm/sec. Prox ECA 93.8/5.8 cm/sec. Rt. Vert. 44.3/11.3 cm/sec. Lt. Vert. 46.5/13.5 cm/sec. Right Extracranial There is intimal thickening but no significant atherosclerotic plaque noted in the right common carotid artery. There is heterogeneous, irregular atherosclerotic plaque noted in the right internal carotid artery. There is heterogeneous, irregular atherosclerotic plaque noted in the right external carotid artery. Antegrade flow is noted in the right vertebral artery. Left Extracranial There is intimal thickening but no significant atherosclerotic plaque noted in the left common carotid artery. There is heterogeneous, irregular atherosclerotic plaque noted in the left internal carotid artery. There is heterogeneous, irregular atherosclerotic plaque noted in the left external carotid artery. Antegrade flow is noted in the left vertebral artery. Procedure This is a Carotid Duplex examination using B-mode, color flow and specral Doppler. Carotid Duplex 20951. Exam performed in department. VL/Carotid Duplex Ultrasound Interpretation Summary Mild (<50%) stenosis right extracranial internal carotid. Mild (<50%) stenosis left extracranial internal carotid. Patent and antegrade vertebrals bilaterally. Ordering Physician: Gloria Vasquez Referring Physician: Susan Alvares M.D. Performed By: Crystal Hutchins RVT
== END | disposition home or self-care (01) ==
LOC: CVS 08:52
PROVIDERS: PCP Internal Medicine; Referring Provider Physician Assistant Medical; Visit Provider Physician Assistant Medical
DX: R09.89 Other specified symptoms and signs involving the circulatory and respiratory systems (principal); R03.0 Elevated blood-pressure reading, without diagnosis of hypertension
CPT/HCPCS: 93788; 93880

== ENCOUNTER 2025-02-28 10:39 | Emergency (ER) | payer MEDICARE, SELFPAY ==
[2025-02-28 10:40] VITALS: BP 172/70; PULSE 67; RESP 18; TEMP 36.8; O2SAT 98; BMI 39.9
--- NOTE | 2025-02-28 11:00 | VDLE_ITS ---
Reason For Study Reason For Study: LLE Pain RIGHT LEFT FV is compressible, spontaneous, phasic, competent GSV is normal. and demonstrates normal augmentation. CFV is compressible, spontaneous, phasic, competent, Procedure and demonstrates normal augmentation. This is a venous duplex using B-mode, color flow and FV is compressible, spontaneous, phasic, competent spectral Doppler. and demonstrates normal augmentation. Exam performed portable in ED. POP V is compressible, spontaneous, phasic, competent The exam was diagnostic. and demonstrates normal augmentation. A preliminary report was called and/or faxed to ED RN T/P Trunk is compressible. Kristyn. PTV is compressible. LT PerV is compressible. VL/Venous Duplex US, Unilateral Interpretation Summary Deep veins of the left lower extremity are patent and compressible segmentally. There is no evidence of left lower extremity deep vein thrombosis. Valvular competence appears intact within the p roximal deep venous system on the left . The left great saphenous vein appears patent and compressible segmentally. The right femoral vein is patent and compressible. Ordering Physician: Greg Villanueva Referring Physician: Susan Alvares Performed By: Antonio Solis RVT
--- NOTE | 2025-02-28 11:01 | ED.VIS.LOWEX ---
HPI History of Present Illness HPI Narrative: 70-year-old female history of hypertension diabetes left lower leg anterior and posterior discomfort left lower calf. Denies any fall injury or trauma. No history of DVT or PE. Only recent risk factors she did travel to and from [place] which was a 12-hour drive each way. No chest pain. No shortness of breath. No swelling. Was seen in either primary care physician's office of the urgent care and was sent in the emergency department to rule out DVT. Describes the pain as sharp. Chief Complaint: Lower Extremity Injury Informant: patient Occured/Mechanism Mechanism/Context: No injury and No blunt trauma Onset/Context/Timing Onset: Days Context: Gradual Onset Timing: Continuous Quality of Pain: Sharp Current Severity: Mild Maximum Severity: Mild Narrative Narrative: 70-year-old female recent travel complaining of left lower leg and calf discomfort. No swelling. No fever. No redness. No history of DVT or PE. No other complaints. Denies any fall or trauma. Prior similar symptoms: No Recent Illness/Hospitalization: No PFSH PFSH Medical History Low back pain Vertigo Carotid stenosis Severe left ventricular hypertrophy Obesity Essential hypertension Syncope Sjogren's disease 3rd cranial nerve palsy Rheumatoid arthritis PTSD (post-traumatic stress disorder) Depression Leukocytosis Sleep apnea with use of nocturnal bilevel positive airway pressure (BPAP) Hypercholesteremia Diabetes Home Medications ?Medication ?Instructions ?Recorded ?Last Taken ?Type aspirin 81 mg chewable tablet 81 mg PO DAILY heart health 04/02/21 08/06/22 History ferrous sulfate 325 mg (65 mg 325 mg PO DAILY 04/20/21 Unknown History iron) tablet (Feosol) omega-3 fatty acids 1,000 mg 1,000 mg PO DAILY 04/20/21 Unknown History capsule cholecalciferol (vitamin D3) 25 25 mcg PO MOWEFR 07/23/22 Unknown History mcg (1,000 unit) capsule dorzolamide 22.3 mg-timolol 6.8 1 drp ophthalmic (eye) Q12H 11/18/23 Unknown History mg/mL eye drops atorvastatin 40 mg tablet 40 mg PO DAILY cholesterol #90 tabs 04/09/24 Unknown Rx lisinopril 40 mg tablet 40 mg PO DAILY blood pressure #90 04/09/24 Unknown Rx tabs escitalopram oxalate 20 mg tablet 20 mg PO DAILY mental health #90 07/09/24 Unknown Rx tabs lidocaine 5 % topical patch 1 patch topical QDAY #15 ea 09/05/24 Unknown Rx amlodipine 10 mg tablet 10 mg PO QDAY #90 tabs 09/20/24 Unknown Rx labetalol 200 mg tablet 200 mg PO BID #180 tabs 09/20/24 Unknown Rx nebivolol 10 mg tablet (Bystolic) 10 mg PO DAILY this is a dose 09/20/24 Unknown Rx increase #90 tabs vitamin PO QDAY 09/20/24 Unknown History semaglutide 1 mg/dose (4 mg/3 mL) 1 mg (0.75 mL) subcut QWEEK #12 mL 09/27/24 Unknown Rx subcutaneous pen injector blood sugar diagnostic (Accu-Chek #100 ea 10/05/24 Unknown Rx Guide test strips) trazodone 50 mg tablet See Rx Instructions PO QHS PRN 10/15/24 Unknown Rx insomnia #90 tabs hydralazine 50 mg tablet 75 mg (1.5 x 50 mg) PO BID blood 11/05/24 Unknown Rx pressure #270 tabs buspirone 10 mg tablet 10 mg PO BID #180 tabs 11/08/24 Unknown Rx Allergy/AdvReac Type Severity Reaction Status Date / Time No Known Allergies Allergy Verified 02/28/25 10:41 Family History Other Breast cancer Cancer Diabetes Kidney disease Surgical History History of cholecystectomy H/O section History of cataract surgery H/O: hysterectomy Social History Smoking Status: Never smoker alcohol intake: never substance use type: does not use caffeine: Yes (Occasionally) ROS ROS ED ROS Narrative Denies recent illness. Constitutional Constitutional ED: Denies chills or fever(s) Eyes Eyes: Denies blurry vision ENT ENT ED: Denies ear pain Cardiovascular Cardiovascular: Denies chest pain Respiratory/Chest Respiratory/Chest: Denies cough Gastrointestinal Gastrointestinal: Denies abdominal pain Genitourinary Genitourinary ED: Denies dysuria or hematuria Musculoskeletal Musculoskeletal: Denies arthralgias Integumentary Denies abscess or Abrasions Neurologic Neurologic: Denies headache(s) Psychiatric Psychiatric: Denies anxiety or depression Endocrine Endocrinology: Denies polydipsia, polyphagia or polyuria Hematologic/Lymphatic Hematologic/Lymphatic: Denies easy bleeding, easy bruising or lymphadenopathy Allergic/Immunologic Allergic/Immunologic ED: Denies mouth swelling, tongue swelling or urticaria EXAM Physical Exam Narrative Exam Narrative: 70-year-old female sitting upright in bed vital signs stable afebrile. Pulse ox 98% on room air no hypoxia. No distress. Appears comfortable. H EENT exam pupils round react light. Moist mucous membranes. Neck nontender no JVD. Back nontender. Lungs clear to auscultation bilaterally. Heart regular rhythm rate about 65 no murmur. Chest wall ribs nontender. Abdomen soft nontender. Moving all 4 extremities. Neurovascularly intact. She describes discomfort in her left lower leg and left lower calf. There is no redness or warmth. There is no lymphangitic streaking. There is no inguinal lymphadenopathy. Normal in appearance. The left leg does not look different from the right. There is no swelling. There is no edema or cords on either leg. She has palpable DP pulses. Her feet are warm. She has normal dorsi plantarflexion. There is no reproducible pain. She has normal flexion extension of the left hip, knee and ankle. Normal sensation. There is no knee effusion. There is no reproducible hip or knee pain. Patient is awake and alert. Answering questions following commands. Has normal sensation and strength in the left lower extremity. Const Vital Signs: 02/28/25 10:40 Temperature 98.2 F Temperature Source Oral Pulse Rate 67 Respiratory Rate 18 Blood Pressure 172/70 H Blood Pressure Mean 104 Pulse Ox 98 Oxygen Delivery Method Room Air MDM MDM MDM Narrative Medical decision making narrative: 70-year-old female with atraumatic left lower leg pain. Recent travel to and from [place] which is a 12-hour drive each way. Ultrasound be obtained. I do not think blood work will be helpful. She has no trauma or bony tenderness I do not think x-rays to be helpful. There is no signs of infection I do not think she needs labs. Repeat exam around 12:05 PM patient is doing well. Resting comfortably. Repeat exam of her leg again no swelling. No redness no discoloration. No reproducible pain at the lower leg ankle or knee. No calf pain. No edema. Foot is neurovascularly intact. No lymphangitic streaking or inguinal lymphadenopathy. Patient I discussed her ultrasound results. With no history of trauma I did not feel that x-rays are warranted and she is fine with that. She will be discharged home. Tylenol and Motrin for pain follow-up if not improving or return if worse. History & Record Review Discussion w/independent historian: Patient Additional record(s) reviewed:: Prior outpatient record, Prior ED visit and Prior labs Lab Data Attestation: I reviewed the patient's lab results. 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 Discharge Plan Triage Chief Complaint: Lower Extremity Injury ED Provider: Greg Villanueva Dx/Rx/DC Orders Clinical Impression: Acute leg pain, History of hypertension, History of diabetes mellitus Prescriptions: No Action omega-3 fatty acids 1,000 mg capsule 1,000 mg PO DAILY ferrous sulfate [Feosol] 325 mg (65 mg iron) tablet 325 mg PO DAILY cholecalciferol (vitamin D3) 25 mcg (1,000 unit) capsule 25 mcg PO MOWEFR vitamin PO QDAY nebivolol [Bystolic] 10 mg tablet 10 mg PO DAILY Qty: 90 3RF labetalol 200 mg tablet 200 mg PO BID Qty: 180 3RF amlodipine 10 mg tablet 10 mg PO QDAY Qty: 90 3RF buspirone 10 mg tablet 10 mg PO BID Qty: 180 1RF aspirin 81 mg Tablet,Chewable 81 mg PO DAILY dorzolamide-timolol 22.3-6.8 mg/mL drops 1 drp ophthalmic (eye) Q12H atorvastatin 40 mg tablet 40 mg PO DAILY Qty: 90 3RF lisinopril 40 mg tablet 40 mg PO DAILY Qty: 90 3RF escitalopram oxalate 20 mg tablet 20 mg PO DAILY Qty: 90 3RF lidocaine 5 % adhesive patch,medicated 1 patch topical QDAY Qty: 15 3RF Rx Instructions: leave on most painful area for up to 12 hrs, low back pain semaglutide 1 mg/dose (4 mg/3 mL) pen injector 1 mg subcut QWEEK Qty: 12 3RF (DME) Accu-Chek Guide test strips Strip See Rx Instructions .Route Qty: 100 3RF Rx Instructions: Twice Daily trazodone 50 mg tablet See Rx Instructions PO QHS PRN (Reason: insomnia) Qty: 90 1RF Rx Instructions: Take 1 to 2 tablets 1/2-hour to 1 hour prior to sleep as needed. hydralazine 50 mg tablet 75 mg PO BID Qty: 270 3RF Primary Care Provider: Susan Alvares Referrals: Susan Alvares MD [Primary Care Provider, Internal Medicine - [facility]] - 1 Week if not improving Activity Restrictions/Additional Instructions: Most likely musculoskeletal pain of your leg. Ultrasound showed no signs of a blood clot. Motrin and Tylenol for pain. Follow-up with your doctor if not improving or return if worse. Print Language: Bulgarian Disposition Disposition: Home, Self Care
[2025-02-28 12:13] VITALS: BP 159/63; PULSE 73; RESP 16; O2SAT 96
[2025-02-28 12:17] VITALS: BP 159/63; PULSE 73; RESP 16; TEMP 36.8; O2SAT 96
== END 2025-02-28 12:18 | disposition home or self-care (01) ==
PROVIDERS: Emergency Provider Emergency Medicine; PCP Internal Medicine; Visit Provider Emergency Medicine
DX: M79.662 Pain in left lower leg (principal); E11.9 Type 2 diabetes mellitus without complications; G47.30 Sleep apnea, unspecified
CPT/HCPCS: 93971; 99282